=== PATIENT | female | born 1985 | race Caucasian/White ===

== ENCOUNTER 2019-07-11 12:35 | Outpatient (CLI) | payer OTHER, SELFPAY ==
--- NOTE | ~2019-07-11 | US_ITS ---
US breast LT limited DATE: 07/11/2019 13:23 INDICATION: Left axillary mass. Left breast pain, upper outer and lower outer quadrants TECHNIQUE: Real-time and color flow imaging of the axilla and upper outer and lower-outer quadrants o f left breast COMPARISON: No prior left mammogram and ultrasound examination is available here FINDINGS: Breast implant is noted. There is a 1.4 x 3.5 mm parallel circumscribed sonolucency at left axilla 7 cm from the nipple, witho ut internal vascularity or suspicious shadowing. There is a benign appearing 3.9 x 11.3 x 11.0 mm lymph node in the left axilla 10 cm from the nipple. Otherwise no suspicious mass or shadowing is evident. IMPRESSION: BI-RADS Category 2: Benign findings Recommendation: Routine mammographic screening Reviewed, dictated and finalized at Location [facility]. Reviewed, dictated and finalized at location A.
--- NOTE | ~2019-07-11 | US_ITS ---
US axilla LT DATE: 07/11/2019 13:23 INDICATION: Left axillary mass, left upper and lower outer quadrant TECHNIQUE: Real-time and color flow imaging of the left breast upper outer and lower-outer quadrants, left axilla COMPARISON: None FINDINGS: No suspicious mass is detected suspicious shadowing left axilla. Benign-appearing left axil russel lymph node. Small left axillary cyst. IMPRESSION: BI-RADS Category 2: Benign Recommendation: Routine mammographic screening Reviewed, dictated and finalized at Location A. Reviewed, dictated and finalized at location A.
== END 2019-07-11 12:36 | disposition home or self-care (01) ==
DX: N63.32 Unspecified lump in axillary tail of the left breast (principal); N64.4 Mastodynia
CPT/HCPCS: 76642; 76882

== ENCOUNTER 2024-05-09 13:55 | Outpatient (CLI) | payer OTHER, SELFPAY ==
--- NOTE | 2024-05-09 13:30 | ECG_ITS ---
Test Date: 2024-05-09 14:22:58 Measurements Intervals [place] Rate: 80 P: 62 TN: 127 QRS: -1 QRSD: 77 T: 40 QT: 376 QTc: 435 Interpretive Statements SINUS RHYTHM LOW QRS VOLTAGE IN PRECORDIAL LEADS [QRS DEFLECTION < 1.0 mV IN CHEST LEADS] POSSIBLE ANTERIOR MYOCARDIAL INFARCTION [30 ms Q WAVE IN V3/V4, OR R < 0.2 mV IN V4], PROBABLY OLD No previous ECG available for comparison Electronically Signed On 05-10-2024 13:52:19 CDT by Tj Eugene M.D.
[2024-05-09 14:53] LABS: Hematocrit 39.4 % (37.0-47.0); Hemoglobin 13.4 g/dL (12.0-15.0)
--- OUTSIDE RECORDS SUMMARY | 2024-05-09 15:47 | XMS_ITS | Encounter Summary ---
Author Organization [facility] Address [address] [place] [address] Care Team Providers Care Electric Switch Tester Name Role Phone Cresencio Jerez MD Primary Care Provider Encounter Details Date Type Department Care Team (Late st Contact Info) Description 10/17/2023 MyCManageIQt Message Enc [facility] - [place] [address], [address] [place] [id number] Cresencio Jerez MD [address] [place], [place] [id number] Michaela Social History Tobacco Use Types Packs/Day Years Used Date Smoking Tobacco: Never Smokeless Tobacco: Never Alcohol Use Standard Drinks/Week Comments Yes 0 (1 standard drink = 0.6 oz pur e alcohol) AUDIT-C Answer Date Recorded Frequency of Alcohol Consumption Never 11/17/2018 Average Number of Drinks Not on file 019 Frequency of Binge Drinking Not on file 10/30 PHQ-2 Answer Date Recorded Patient Health Questionnaire-2 Score 0 03/24/2023 Comments No Sex and Gender Information Value Date Recorded Sex Assigned at Not on file Legal Sex Female 7:34 PM CDT Gender Identity Not on file Sexual Orientation Not on file documented as of this encounter Plan of Treatment Not on file documented as of this encounter Visit Diagnoses Not on filedocumented in this encounter Additional Health Concerns Assessment Noted Time PHQ-9 Depression Total Score: 12 023 12:02 PM CDT documented as of this encounter Care Teams Electric Switch Tester Relationship Specialty Start Date End Date Cresencio Jerez MD [address] [place] [address] PCP - General FAMILY PRACTICE 11/17/18 documented as of this encounter
--- OUTSIDE RECORDS SUMMARY | 2024-05-09 15:48 | XMS_ITS | Data Portability ---
Author Organization [facility] [employer] , [facility] Address [address] [place] [address] Assessment No assessment recorded. Plan of Treatment Reminders Order Date Submit Date Provider Last Modified By Organization Details Last Modified Time Details Appointments None recorded. Lab test, urine 2024 025 [facility], [address] [place], [address], 5 14:52:33 HPV E6+E7 mRNA, qualitative PCR, cervix 2024 025 [facility] [place] [facility], [address] [place] [address], [address], 5 14:18:36 pap, LB 2024 025 [facility], [address] [place], [address], 5 17:57:02 Referral None recorded. Procedures None recorded. Surgeries None recorded. Imaging MAMMO, screening, digital, bilateral 2024 025 [facility], [address] [facility] [address], [address], [place], [address], 5 12:44:04 US, transvagina l 2024 025 [facility] Not available 5 12:39:27 Medication Orders Mirena 21 mcg/24 hr (up to 8 years) 52 mg intrauterin e device 2024 025 [facility], [address] [place], [id number], 14:52:33 doxycycline hyclate 100 mg capsule 2024 025 [facility], [address], [place], [id number], 16:26:15 estradiol 1 mg tablet 2024 025 [facility], [address], [place], [id number], 16:26:16 Patient TargetsNo targets recorded. Patient Instructions Encounter Date Encounter Id Patient Instructions Last Modified By Organization Details Last Modified Time 04/03/2024 [id number] intrauterine device (IUD) insertion: care instructions [email or web address] Not available 04/03/2024 14:52:33 Reason for Referral None Reported. Results Created Date Observation Date Name Description Value Unit Range Abnormal Flag Note LastModifiedBy Organization Detail LastModifiedTime 04/03/1904/04/2024 HPV HIGH RISK HPV high risk Negati ve negati ve normal The HPV High Risk assay is inten ded for use as co-te sting with cytol ogy and not as a subst itute for regul ar cervi letty cytol ogy scree matt. This assay is not inten ded for use as a scree matt devic e for women under age 30 with leonel l cervi letty cytol ogy. Not Available [address], [address], 04/04/2024 14:18:36 04/03/1904/06/2024 THINP REP TIS PAP clinical information: normal None given Not Available [facility] [address] [place], [address], 04/06/2024 17:57:02 04/03/19 25 04/06/2024 THINP REP TIS PAP LMP: normal NONE GIVEN Not Available [facility] [address] [place], [address], 04/06/2024 17:57:02 04/03/19 25 04/06/2024 THINP REP TIS PAP prev. Pap: normal NONE GIVEN Not Available [address], [address], 04/06/2024 17:57:02 04/03/19 25 04/06/2024 THINP REP TIS PAP prev. BX: normal NONE GIVEN Not Available [address], [address], 04/06/2024 17:57:02 04/03/19 25 04/06/2024 THINP REP TIS PAP source: normal Cervi x Not Available [address], [address], 04/06/2024 17:57:02 04/03/19 25 04/06/2024 THINP REP TIS PAP statement of adequacy: normal Satis facto ry for evalu ation . Endoc ervic al/tr ansfo rmati on zone compo nent prese nt. Age and/o r menst rual statu s not provi ded Not Available [address], [address], 04/06/2024 17:57:02 04/03/19 25 04/06/2024 THINP REP TIS PAP interpretati on/result: normal Cytol ogy Resul ts: Negat millie for intra epith elial lesio n or nhi kelley . Not Available [address], [address], 04/06/2024 17:57:02 04/03/1904/06/2024 THINP REP TIS PAP comment: normal This Pap test has been evalu ated with compu ter carlito gons[employer] ology . Not Available [address], [address], 04/06/2024 17:57:02 04/03/19 25 04/06/2024 THINP REP TIS PAP cytotechnolo gist: normal MEF, CT( CP) CT scree matt locat ion: [place] [address] [place] [address] Not Available [facility] [place] [address] [place], [address], 04/06/2024 17:57:02 04/03/19 25 04/06/2024 THINP REP TIS PAP comment EXPLA NATOR Y NOTE: The Pap is a scree matt test for cervi letty cance r. It is not a diagn ostic test and is subje ct to false negat millie and false posit millie resul ts. It is most relia ble when a satis facto ry sampl e, regul sanjuana obtai marga, is submi tted with relev ant clini letty findi ngs and histo ry, and when the Pap resul t is evalu ated along with histo lv and curre nt clini letty infor matio n. Not Available [facility] [place] [address] [address], [place], [address], 04/06/2024 17:57:02 04/03/19 25 04/03/2024 pregn sonia test, urine HCG negati ve Not Available [address], [address], 04/03/2024 13:36:43 04/03/19 25 04/03/2024 US, trans vagin al No observ ation record ed. [email or web address] [address], [place], [address], 04/17/2024 12:39:27 04/11/19 25 04/03/2024 MAMMO , scree matt, digit al, bilat eral No observ ation record ed. [email or web address] [facility] [address] [place], [address], 04/15/2024 20:14:04 04/19/19 25 04/03/2024 MAMMO , kennae matt, digit al, bilat eral No observ ation record ed. [email or web address] [address], [address], 04/19/2024 15:15:09 Result Notes Documentation Provider Name and Address Organization Details Recorded Time Mammo, Screening, Digital, Bilateral : Mammogram Mammogram Right: normal Left: normal Marie Longo, ULISS[address] [place], [address], [facility] 04/19/2024 15:15:09 Procedures Surgical History Date Name Laterality Status Provider Name and Address Organization Details Recorded Time 04/03/19 25 [facility] 04/03/2024 14:52:13 04/03/19 25 Most Recent Mammogram completed Jorge A Parks [place] [facility] [place] [facility] 04/16/2024 17:16:08 augmentation of bilateral breasts [facility] 04/03/2024 14:20:12 Imaging Results Imaging Date Name Status LastModified by Organization Details LastModified Time 04/03/2024 US, transvaginal completed [email or web address] Korin [address], [place], [address], 04/17/2024 12:39:27 04/03/2024 MAMMO, screening, digital, bilateral completed [email or web address] [address], [address], 04/15/2024 20:14:04 04/03/2024 MAMMO, screening, digital, bilateral completed [email or web address] [address], [address], 04/19/2024 15:15:09 Procedure Notes None recorded. Medical Equipment None Reported. Allergies No known drug allergies Medications Name Sig Start Date Stop Date Status Note LastModified by Organization Details LastModified Time Mirena 21 mcg/24 hr (up to 8 years) 52 mg intrauterin e device Take 1 device by intrauter ine route. 2024 active Not Available Not Available Not Avai lable doxycycline hyclate 100 mg capsule Take 1 capsule twice a day by oral route. 2024 active Not Available Not Available Not Avai lable valacyclovi r 1 gram tablet TAKE 1 TABLET BY MOUTH EVERY 12 HOURS FOR 3 DAYS NEEDED active Not Available Not Available No t Available Zithromax Z-Hitesh 250 mg tablet TAKE 2 TABLETS (500 MG) BY ORAL ROUTE ONCE DAILY FOR 1 DAY THEN 1 TABLET (250 MG) BY ORAL ROUTE ONCE DAILY FOR 4 DAYS 2023 active Not Available Not Available Not Avai lable Diflucan 150 mg tablet Take 1 tablet every day by oral route as directed for 2 days. 04/03 completed Not Available Not Available Not Available metronidazo le 500 mg tablet TAKE 1 TABLET BY MOUTH EVERY 12 HOURS 04/03 completed Not Available Not Available Not Available ciprofloxac in 500 mg tablet TAKE 1 TABLET BY MOUTH EVERY 12 HOURS 04/03 completed Not Available Not Available Not Available amoxicillin 500 mg tablet Take 1 tablet every 8 hours by oral route for 10 days. 04/03 completed Not Available Not Available Not Available ondansetron 8 mg disintegrat ing tablet DISSOLVE 1 TABLET ON THE TONGUE TWICE DAILY NEEDED active Not Available Not Available No t Available meloxicam 7.5 mg tablet TAKE 1 TABLET BY MOUTH EVERY DAY NEEDED active Not Available Not Available No t Available estradiol 1 mg tablet Take 1 tablet twice a day by oral route as directed for 5 days, for bleeding more than 7 days. 2024 active Not Available Not Available Not Avai lable methylpredn isolone 4 mg tablets in a dose pack FOLLOW PACKAGE DIRECTION S active Not Available Not Available No t Available albuterol sulfate HFA 90 mcg/actuati on aerosol inhaler INHALE 1 PUFF BY MOUTH EVERY 4 HOURS NEEDED FOR WHEEZING active Not Available Not Available No t Available ondansetron 4 mg disintegrat ing tablet DISSOLVE 2 TABLETS ON THE TONGUE EVERY 6 HOURS NEEDED active Not Available Not Available No t Available escitalopra m 10 mg tablet TAKE 1 TABLET BY MOUTH EVERY DAY active Not Available Not Available No t Available cefixime 400 mg capsule Take 2 capsules every day by oral route for 1 day. 2022 active Not Available Not Available Not Avai lable Vitals Date Recorded Body height Body mass index (BMI) Body weight Systolic blood pressure Diastolic blood pressure Provider Name and Address Organization Details Last Updated DateTime 04/03/2024 162.56 cm 23.7 kg/m2 61223.75 g 138 mm[Hg] 78 mm[Hg] Nellie Barreto [facility] 14:19:22 Social History None recorded. Functional Status None recorded. Mental Status None recorded. Family History Nothing Reported. Medical History Condition Response Other Cancer N High Blood Pressure N Colon Cancer N Cytomegalovirus N Hyperthyroidism N Herpes (HSV) N Breast Cancer N Blood Transfusion N MRSA N Lung Cancer N Hypothyroidism N Depression N Incontinence N Panic Attacks N Neurological Disorder N Deep Vein Thrombosis N Anxiety Disorder N Autoimmune disease N Arthritis N Tuberculosis/Positive PPD N Shingles N Polycystic Ovarian Syndrome N Infertility N Cervical Cancer N Chlamydia N Hematuria N Stroke N Varicosities N Crohn's Disease N Seasonal allergies N Alzheimer's/Dementia N COPD/Emphysema N HPV/Genital Warts N Endometriosis N IBS (Irritable Bowel Syndrome) N History of Abnormal Pap N High Cholesterol N Liver Disease N Kidney Infection N Fibromyalgia N Ulcer N Kidney Disease N HIV N Gallbladder disease N Sickle Cell Disease/Trait N Von Willebrand disease N ADD/ADHD N Eating Disorder N Anemia N Diabetes Mellitus (non-insulin dependent ) N Ovarian Problems N Multiple Sclerosis N Gonorrhea N Frequent Urinary Tract infections N Osteopenia N Headaches/migraines N GERD (reflux) N Ovarian Cancer N Diabetes (insulin dependent) N Seizures/Epilepsy N Breast Problems N Fibroids N Heart Attack N Asthma N Lupus N Endometrial Cancer N Rubella N Blood Clotting Disorder N Bipolar Disorder N Diabetes Mellitus (during ) N Ulcerative Colitis N Hepatitis N Heart Disease N Pulmonary Embolism N RPR N Chicken Pox N Osteoporosis N Gynecological History Statement/Question Response Most Recent Mammogram 04/03/2024 Current Control Method IUD Age at Menarche -1 Date of LMP Obstetrics History GPAL:G 4 P 4 0 0 4 Type Value Full Term 4 Living 4 Total 4 Past Encounters Encounter ID Performer Location Encounter Start Date Encounter Closed Date Diagnosis/Indication Diagnosis SNOMED-CT Code Diagnosis ICD10 Code Diagnosis Note [id number] Wilton Us MD [facility] [address] [place] [address] 04/03/2024 14:02:12 04/04/2024 17:26:02 Insertion of intrauterine contraceptive device 31055462 Z30.430 Cancer cer vix screening status 817319510 Z12.2 y.o. here for annual exam. - Pap up to date from , discussed natural course of HPV infection, ASCCP guidelines . Plan to repeat cotesting in - Contracept millie counseling : Discussed options including OCPs, NuvaRing, Nexplanon, hormonal and copper IUDs. Discussed risks, benefits, and side effects of each option, including risk of VTE with hormonal contracept ion and uterine perforatio n with IUD. - Routine labs done with PCP - Mammo last year WNL, discussed option for yearly or q2 yr screening in 40s based on different guideline recommenda tions, pt without family hx, would like to proceed with q2yr screening, repeat next year - Depression screen NEG - BMI counseling , diet and exercise reviewed - RTO for annual or PRN Screening mammography 24 764078 Z12.31 Uses IUD (intrauterine device) contraception 753572085 Z97.5 you may experience some cramping for 48 hours and you may take 800 ibuprofenj every 6 hours as neede for cramping. Start your antibiotic s 2 days after the placement. You may have spotting for many days and this is typically because the endometria l lining is very thin secondary to the progestero ne in the IUD and you may take 1mg estradiol twice per day for 5 days if you have more than 7 days of spotting per month. you may even need to take an estradiol tablet every day or every other day to keep the lining thick enough to cover up the blood vessels in the uterus so you arent spotting Health Concerns Section Related Observation LastModified by Organization Detai ls LastModified Time None Recorded Concern Status LastModified by Organization Details LastModified Time None Recorded Advance Directives Directive None Recorded Payers Encounter Date Sequence Insurance Name Policy Number Policy Mandujano Covered Member ID Mandujano Member ID Guarantor Name 04/03/2024 1 [facility] [id number] Michaela Perez [id number] Michaela Perez Notes Date Note Type Note Provider Name and Address Organization Details Recorded Time 04/03/2024 text/html Patient here for IUD replacement. Last IUD inserted 2018. Due for Pap smear. Due for mammogram. Appointment for mammogram after IUD placement and US. No gyne concerns. Wilton Us MD [facility], [place], [address], [facility] 04/10/2024 18:39:02 OBGyn Episode No OBEpisode recorded.
--- OUTSIDE RECORDS SUMMARY | 2024-05-09 15:48 | XMS_ITS | Clinical Summary ---
Author Organization [facility] [employer] Address [address] [place] [address] Care Team Providers Care Sales Representative Advertising Name Role Phone Unavailable Primary Care Provider Unavailabl e Source Comments [facility],non-owned Affiliates and Associated Physician Practices is amultiple site organization consisting of ambulatory clinics and hospital sitesin [place], [place], [place] and [place]. This disclosure is being madepursuant to the Care Everywhere program and may not contain all information available regarding this patient. Last updated 17.[facility] [employer] Allergies No known active allergies Medications * Be aware that medications may not be up to date on this document. Alwaysverify current medications with the patient. Medication Sig Dispensed Refills Start Date End Date Status Vit-Fe Fumarate-FA ( VITAMIN) 28-0.8 MG tablet Take 1 Tab by mouth once daily. Active ibuprofen (MOTRIN) 600 MG tablet Take 1 Tab by mouth every 6 hours as needed for Pain. 40 Tab 0 04/21/2013 Active oxyCODONE-acetaminophe n (PERCOCET) 5-325 MG tablet Take 1 Tab by mouth every 6 hours as needed for Pain. 30 Tab 0 04/21/2013 Active Active Problems No known active problems Immunizations Name Administration Dates Next Due TDAP (7yrs+) 04/19/2013 Family History Medical History Relation Name Comments Hypertension Father Relation Name Status Comments Father Social History Tobacco Use Types Packs/Day Years Used Date Smoking Tobacco: Never Smokeless Tobacco: Never Tobacco Cessation:Counseling Given: No Alcohol Use Standard Drinks/Week Comments No 0 (1 standard drink = 0.6 oz pur e alcohol) Sex and Gender Information Value Date Recorded Sex Assigned at Not on file Gender Identity Not on file Sexual Orientation Not on file Last Filed Vital Signs Vital Sign Reading Time Taken Comments Blood Pressure 115/53 04/21/2013 8:31 AM [employer] Pulse 81 04/19/2013 12:52 PM [employer] Temperature 36.5 C (97.7 F) 04/21/2013 8:31 AM [employer] Respiratory Rate 16 04/21/2013 8:31 AM [employer] Oxygen Saturation 99% 04/19/2013 2:30 PM [employer] Inhaled Oxygen Concentration - - Weight 74.8 kg (165 lb) 04/19/2013 8:57 AM [employer] Height 165.1 cm (5' 5 ) 04/19/2013 8:57 AM [employer] Body Mass Index 27.46 04/19/2013 8:57 AM [employer] Plan of Treatment Health Maintenance Due Date Last Done Comments LIPID TESTING 1983 MAMMOGRAM 1983 PAP SMEAR 1983 HIV SCREENING 08/13/1998 HEPATITIS C SCREENING 08/09/2001 HEPATITIS B VACCINE (1 of 3 - 19+ 3-dose series) 08/13/2002 DTAP/TDAP/TD VACCINES (2 - T d or Tdap) 04/19/2023 04/19/2013 COVID-19 VACCINE (2023-2 5 season) 2023 INFLUENZA VACCINE (#1) 2023 DEPRESSION SCREENING 02/29/2024 ZOSTER VACCINE (1 of 2) 08/13/2033 HIB VACCINE Aged Out No longer eligi ble based on patient's age to complete this topic HPV VACCINE Aged Out No longer eligi ble based on patient's age to complete this topic MENINGOCOCCAL (Group B) VACC INE SHARED DECISION-MAKING Aged Out No longer eligibl e based on patient's age to complete this topic MENINGOCOCCAL GROUPS A/C/Y/W VACCINE Aged Out No longer eligible b ased on patient's age to complete this topic PNEUMOCOCCAL VACCINE Aged Out No long er eligible based on patient's age to complete this topic Advance Directives * Full Code (Latest Code Status on File) Date Activated Date Inactivated Comments 04/19/2013 9:08 AM 04/21/2013 2:40 PM
--- OUTSIDE RECORDS SUMMARY | 2024-05-09 15:48 | XMS_ITS | Referral Summary ---
Author Organization [facility] Address [address] [place] [address] Care Team Providers Care Washing And Screening Plant Supervisor Name Role Phone Unavailable Primary Care Provider Unavailabl e Source Comments [facility],non-owned Affiliates and Associated Physician Practices is amultiple site organization consisting of ambulatory clinics and hospital sitesin [place], [place], [place] and [place]. This disclosure is being madepursuant to the Care Everywhere program and may not contain all information available regarding this patient. Last updated 17.[facility] Allergies No known active allergies Medications * [...] Administration Dates Next Due TDAP (7yrs+) 04/19/2013 Social History Tobacco Use Types Packs/Day Years [...] Comments Blood Pressure 115/53 04/21/2013 8:31 AM RADIOTELEGRAPHIST Pulse 81 04/19/2013 12:52 PM RADIOTELEGRAPHIST Temperature 36.5 C (97.7 F) 04/21/2013 8:31 AM RADIOTELEGRAPHIST Respiratory Rate 16 04/21/2013 8:31 AM RADIOTELEGRAPHIST Oxygen Saturation 99% 04/19/2013 2:30 PM RADIOTELEGRAPHIST Inhaled Oxygen Concentration - - Weight 74.8 kg (165 lb) 04/19/2013 8:57 AM RADIOTELEGRAPHIST Height 165.1 cm (5' 5 ) 04/19/2013 8:57 AM RADIOTELEGRAPHIST Body Mass Index 27.46 04/19/2013 8:57 AM RADIOTELEGRAPHIST Functional Status Functional Status Response Date of Assess ment Is person deaf or have serious hearing difficult y? No 04/19/2013 Is person blind or have serious difficulty seein g? No 04/19/2013 Does person have serious dif ficulty walking/climbing stairs? No 04/19/2013 Does person have difficulty dressing/bathing? No 04/19/2013 Does person have difficulty doing errands alone? No 04/19/2013 Cognitive Status Response Date of Assessm ent Does person have difficulty concentrating/remembering/making decisions? No 04/19/2013 Plan of Treatment Not on file Advance Directives * Full Code (Latest Code Status on File) Date Activated Date Inactivated Comments 04/19/2013 9:08 AM 04/21/2013 2:40 PM
--- OUTSIDE RECORDS SUMMARY | 2024-05-09 15:48 | XMS_ITS | Referral Summary ---
Author Organization [facility] Address [address] [place] [phone] Phone Care Team Providers Care Imager Name Role Phone Cresencio Jerze MD Primary Care Provider [phone]- [phone] Encounters Date Type Department Care Team Description 03/02/2024 1:28 PM STRING TOP SEALER - 03/02/2024 3:20 PM STRING TOP SEALER Emergency [facility] Emergency Department [address] [place] [id number] Pleuritic chest pain (Primary Dx) Discharge Disposition: Discharge to home or self care from Last 3 Months Allergies No known active allergies Medications ketorolac (TORADOL) 10 mg tablet Take 1 tablet (10 mg total) by mouth every 6 (six) hours as needed for pain 20 tablet 03/02/2024 Active Active Problems No known active problems Social History Tobacco Use Types Packs/Day Years Used Date Smoking Tobacco: Never Tobacco Cessation:Counseling Given: Not Answered Personal Safety Answer Date Recorded Have you ever been in or are you currently in a harmful physical or emotional relationship or is someone making you feel afraid or unsafe? Denies 03/02/2024 Comments No Sex and Gender Information Value Date Recorded Sex Assigned at Not on file Legal Sex Female 9:15 AM CDT Gender Identity Not on file Sexual Orientation Not on file Last Filed Vital Signs Vital Sign Reading Time Taken Comments Blood Pressure 127/90 03/02/2024 2:00 PM STRING TOP SEALER Pulse 68 03/02/2024 2:00 PM STRING TOP SEALER Temperature 37.2 C (99 F) 03/02/2024 11:52 AM STRING TOP SEALER Respiratory Rate 18 03/02/2024 2:00 PM STRING TOP SEALER Oxygen Saturation 100% 03/02/2024 2:00 PM STRING TOP SEALER Inhaled Oxygen Concentration - - Weight 62.4 kg (137 lb 9.1 oz) 03/02/2024 11:52 AM STRING TOP SEALER Height 165.1 cm (5' 5 ) 03/02/2024 11:52 AM STRING TOP SEALER Body Mass Index 22.89 03/02/2024 11:52 AM STRING TOP SEALER Plan of Treatment Not on file Procedures Procedure Name Priority Date/Time Associated Diagnosis Comments CT CHEST PE W CONTRAST ED 2:25 PM STRING TOP SEALER TROPONIN T HIGH-SENSITIVITY 2-HOUR Timed 03/02/2024 1:31 PM STRING TOP SEALER D-DIMER, QUANTITATIVE STAT 03/02/2024 1:31 PM STRING TOP SEALER XR CHEST 1 VIEW ED 03/02/2024 12:35 PM STRING TOP SEALER POCT HCG, URINE Routine 03/02/2024 12:30 PM STRING TOP SEALER EGFR STAT 03/02/2024 11:57 AM STRING TOP SEALER DIFFERENTIAL AUTO STAT 03/02/2024 11: 57 AM STRING TOP SEALER TROPONIN T HIGH-SENSITIVITY SERIES (BASELINE, 2HR, 4HR, 6HR) STAT 03/02/2024 11:57 AM STRING TOP SEALER COMPREHENSIVE METABOLIC PANEL STAT 03/02/2024 11:57 AM STRING TOP SEALER CBC WITH AUTO DIFFERENTIAL STAT 03/02/2024 11:57 AM STRING TOP SEALER ECG 12-LEAD STAT 03/02/2024 11:55 AM STRING TOP SEALER from Last 3 Months Results * CT Chest PE (CTA) W Contrast (03/02/2024 2:25 PM STRING TOP SEALER) Anatomical Region Laterality Modality Body N/A Computed Tomogra phy 03/02/2024 2:35 PM STRING TOP SEALER Narrative 03/02/2024 2:38 PM STRING TOP SEALER EXAM DESCRIPTION: CT CHEST PE (CTA) W CONTRAST REASON FOR STUDY: Chest pain, PE suspected, low/intermediate prob, positive D-dimer CP since Tuesday. States has had this in past and came here, diagnosed with pulled muscle. States occasionally SOB with exertion. Denies cardiac hx. TECHNIQUE: CT angiogram of the chest performed with intravenous contrast using helical scanning technique with dynamic intravenous contrast injection. Reconstructed coronal and sagittal MPR images reviewed. All images stored on PACS. 3D MIP images rendered on scanning unit and reviewed at time of interpretation. Automated exposure control was used as a dose optimization technique for this examination. CONTRAST TYPE/DOSE: 100mL of IOVERSOL 350 MG IODINE/ML INTRAVENOUS SYRINGE injected via intravenous COMPARISON: None. FINDINGS: VASCULATURE: No filling defects seen within the pulmonary arterial system. The thoracic aorta is nonaneurysmal. Ascending thoracic aorta 3.4 cm, descending thoracic aorta 2.2 cm. Main pulmonary artery 2.7 cm. LUNGS: Lung bases are clear. No suspicious nodule or mass. PLEURA: No pleural effusion or pneumothorax. MEDIASTINUM/BEKAH: No mediastinal or hilar mass. HEART: Heart size is normal with no pericardial effusion. AXILLA: No axillary lymphadenopathy. CHEST WALL: No chest wall mass or subcutaneous emphysema. Bilateral breast prosthesis. HARDWARE/LINES/TUBES: None. UPPER ABDOMEN: In the included upper abdomen, no significant abnormalities are seen. MUSCULOSKELETAL: Bone windows demonstrate no acute or aggressive osseous abnormality. OTHER: No significant abnormality. IMPRESSION: No evidence of an acute pulmonary embolism. No evidence of an acute cardiopulmonary abnormality. THIS IS AN ELECTRONICALLY VERIFIED FINAL REPORT 03/02/2024 2:38 PM - Electronically signed by Blas Felton M.D. CH: YESSENIA Report ID: [id number] Reading Location: [id number] Procedure Note Blas Felton Jr., MD - 03/02/2024 EXAM DESCRIPTION: CT CHEST PE (CTA) W CONTRAST REASON FOR STUDY: Chest pain, PE suspected, low/intermediate prob,positive D-dimer CP since Tuesday. States has had this in past and came here, diagnosed with pulled muscle. States occasionally SOB with exertion. Denies cardiac hx. TECHNIQUE: CT angiogram of the chest performed with intravenous contrastusing helical scanning technique with dynamic intravenous contrast injection. Reconstructed coronal and sagittal MPR images reviewed. All images storedon PACS. 3D MIP images rendered on scanning unit and reviewed at time of interpretation. Automated exposure control was used as a doseoptimization technique for this examination. CONTRAST TYPE/DOSE: 100mL of IOVERSOL 350 MG IODINE/ML INTRAVENOUSSYRINGE injected via intravenous COMPARISON: None. FINDINGS: VASCULATURE: No filling defects seen within the pulmonaryarterial system. The thoracic aorta is nonaneurysmal. Ascending thoracic aorta3.4 cm, descending thoracic aorta 2.2 cm. Main pulmonary artery 2.7 cm. LUNGS: Lung bases are clear. No suspicious nodule or mass. PLEURA: No pleural effusion or pneumothorax. MEDIASTINUM/BEKAH: No mediastinal or hilar mass. HEART: Heart size is normal with no pericardial effusion. AXILLA: No axillary lymphadenopathy. CHEST WALL: No chest wall mass or subcutaneous emphysema. Bilateralbreast prosthesis. HARDWARE/LINES/TUBES: None. UPPER ABDOMEN: In the included upper abdomen, no significantabnormalities are seen. MUSCULOSKELETAL: Bone windows demonstrate no acute or aggressive osseous abnormality. OTHER: No significant abnormality. IMPRESSION: No evidence of an acute pulmonary embolism. No evidence of an acute cardiopulmonary abnormality. THIS IS AN ELECTRONICALLY VERIFIED FINAL REPORT 03/02/2024 2:38 PM - Electronically signed by Blas Felton M.D. CH: Report ID: [id number] Reading Location: [place] [address] PROCEDURES Final Result * Troponin T high-sensitivity 2-hour (03/02/2024 1:31 PM STRING TOP SEALER) Trop T hs <6 <=14 ng/L Comment: Interpretive Data For further hscTnT resources including the diagnostic algorithm and an aid in interpretation, copy and paste this link: https://nrl.testcatalog.org/show/hsTrop Current Interpretive Data last revised 2020. Testing performed by: [address] [address] Trop T hs delta 0 ng/L [place] Comment:Testing performed by : [address] [address] Trop T hs interp Insignificant [place] MUELLER Comment:Testing performed by : [address] [address] Blood 03/02/2024 1:31 PM STRING TOP SEALER 03/02/2024 1:34 PM STRING TOP SEALER us Kam Das MD LAB BLOOD ORDERABLES F inal Result Performing Organization Address [facility] Co de Phone Number [address] [employer] [place], [place] [id number] * (ABNORMAL) D-dimer, quantitative (03/02/2024 1:31 PM STRING TOP SEALER) D-Dimer 530(H) <=499 ng/mL FEU Comment: Interpretive data FDA approved the D-dimer, in conjunction with a low or moderate pretest probability score, to exclude venous thromboembolic events (VTE) (PE and DVT) in outpatients when the D-dimer result is < 500 ng/ml FEU. Evidence supports using an age-adjusted D-dimer cut-off for outpatients older than 50 (age x 10) to improve specificity without sacrificing sensitivity. Example: age 68, VTE cut-off 680 ng/ml FEU. References; Schouten HT et al. Brit Med J. 2013;346:f2492. Freya et al. Annals Int Med. 2015;163:701-11. Current interpretive data was last revised on 2019. Testing performed by: [address] [address] Blood 03/02/2024 1:31 PM STRING TOP SEALER 03/02/2024 1:34 PM STRING TOP SEALER us Cindy LOPEZ LAB BLOOD ORDERABLES Final Resu lt Performing Organization Address City/[facility]/ZIP Co de Phone Number [facility] [address] [place] [address] [place] [address] * XR Chest 1 Vw Portable (if patient condition/safety warrant portable) (03/02/2024 12:35 PM STRING TOP SEALER) Anatomical Region Laterality Modality Body, Chest N/A Computed Radiogr aphy 03/02/2024 12:5 2 PM STRING TOP SEALER Narrative 03/02/2024 12:53 PM STRING TOP SEALER EXAM DESCRIPTION: XR CHEST 1 VIEW REASON FOR STUDY: chest pain Pt states chest pain 02/26/24 TECHNIQUE: Single radiographic view(s) of the chest. COMPARISON: Prior exam 09/29/2023 FINDINGS: LUNGS: Pulmonary vascularity appears normal. No infiltrate or effusion. HEART/MEDIASTINUM: Cardiac silhouette normal in size. Mediastinal and hilar contours appear normal. LINES/TUBES: None. BONES: No acute osseous abnormality. IMPRESSION: No acute cardiopulmonary abnormality. THIS IS AN ELECTRONICALLY VERIFIED FINAL REPORT 03/02/2024 12:53 PM - Electronically signed by Wilton NOLASCO Report ID: [id number] Reading Location: [id number] Procedure Note Wilton Eugene MD - 03/02/2024 EXAM DESCRIPTION: XR CHEST 1 VIEW REASON FOR STUDY: chest pain Pt states chest pain 02/26/24 TECHNIQUE: Single radiographic view(s) of the chest. COMPARISON: Prior exam 09/29/2023 FINDINGS: LUNGS: Pulmonary vascularity appears normal. No infiltrate or effusion. HEART/MEDIASTINUM: Cardiac silhouette normal in size. Mediastinal andhilar contours appear normal. LINES/TUBES: None. BONES: No acute osseous abnormality. IMPRESSION: No acute cardiopulmonary abnormality. THIS IS AN ELECTRONICALLY VERIFIED FINAL REPORT 03/02/2024 12:53 PM - Electronically signed by Wilton NOLASCO: GAURAV Report ID: [id number] Reading Location: [id number] us Kam Das MD IMG XR PROCEDURES Nova l Result * POCT hCG, urine (03/02/2024 12:30 PM STRING TOP SEALER) [facility] HCG, ur, POC Negative Negative Lot Number [id number] QC Backgroud Clear Acceptable QC Control Line Acceptable Urine 03/02/2024 12:3 0 PM STRING TOP SEALER Kam Das MD POINT OF CARE TEST ORD ERABLES Final Result * Troponin T high-sensitivity series (baseline, 2hr, 4hr, 6hr) (03/02/2024 11:57 AM STRING TOP SEALER) [facility] Trop T hs <6 <=14 ng/L Comment: Interpretive Data For further hscTnT resources including the diagnostic algorithm and an aid in interpretation, copy and paste this link: https://nrl.testcatalog.org/show/hsTrop Current Interpretive Data last revised 2020. Testing performed by: [facility], [address] [place] [address]., [address] Blood 03/02/2024 11:5 7 AM STRING TOP SEALER 03/02/2024 12:12 PM STRING TOP SEALER Kam Das MD LAB BLOOD ORDERABLES F inal Result [facility] [address] [facility] [place] [address] * eGFR (03/02/2024 11:57 AM STRING TOP SEALER) [facility] eGFR >90 >=60 mL/min/1. 73 m2 Comment: Interpretive Data Reference Interval Normal >/= 90 mL/min/1.73m2 Mildly decreased* 60 - 89 mL/min/1.73m2 Mildly to moderately decreased 45 - 59 mL/min/1.73m2 Moderately to severely decreased 30 - 44 mL/min/1.73m2 Severely decreased 15 - 29 mL/min/1.73m2 Kidney Failure < 15 mL/min/1.73m2 *Relative to young adult level Estimated glomerular filtration rate is determined by the 2020 CKD-EPI equation recommended by the National Kidney Foundation (A Unifying Approach to GFR Estimation: Recommendations of the NKF-ASK Task Force on Reassessing the Inclusion of Race in Diagnosing Kidney Disease, JASN 2020). The CKD-EPI equation should not be used for patients with unstable renal function and has not been validated in children and those over 70. Current interpretive data was last reviewed 2020. Testing performed by: [address] [address] Blood 03/02/2024 11:5 7 AM STRING TOP SEALER 03/02/2024 12:12 PM STRING TOP SEALER us Kam Das MD LAB BLOOD ORDERABLES F inal Result [facility] [address] [facility] [place] [address] * Differential, auto (03/02/2024 11:57 AM STRING TOP SEALER) Neutrophil abs 3.0 1.5 - 6.5 K/cumm Comment:Testing performed by : [address] [address] Imm gran abs 0.0 0.0 - 0.1 K/cumm GIOVANY Comment:Testing performed by : [address] [address] Lymphocyte abs 1.6 0.8 - 3.3 K/cumm GI[place] Comment:Testing performed by : [address] [address] Monocyte abs 0.4 0.2 - 0.8 K/cumm GIOV[place] Comment:Testing performed by : [address] [address] Eosinophil abs 0.2 0.0 - 0.5 K/cumm GIOV[place] Comment:Testing performed by : [address] [address] Basophil abs 0.0 0.0 - 0.1 K/cumm GI[place] Comment:Testing performed by : [address] [place] [address] Neutrophil pct 57.2 % [facility] Comment: Interpretive Data Percent cell count reference ranges are not reported, since discordance with absolute values may lead to misinterpretation of CBC data. Current Interpretive Data was last revised on 2017. Testing performed by: [address] [address] Imm gran pct 0.2 % [facility] Comment: Interpretive Data Percent cell count reference ranges are not reported, since discordance with absolute values may lead to misinterpretation of CBC data. Current Interpretive Data was last revised on 2017. Testing performed by: [address] [address] Lymphocyte pct 30.2 % [facility] Comment: Interpretive Data Percent cell count reference ranges are not reported, since discordance with absolute values may lead to misinterpretation of CBC data. Current Interpretive Data was last revised on 2017. Testing performed by: [address] [address] Monocyte pct 8.4 % [facility] Comment: Interpretive Data Percent cell count reference ranges are not reported, since discordance with absolute values may lead to misinterpretation of CBC data. Current Interpretive Data was last revised on 2017. Testing performed by: [address] [address] Eosinophil pct 3.4 % CERNER Comment: Interpretive Data Percent cell count reference ranges are not reported, since discordance with absolute values may lead to misinterpretation of CBC data. Current Interpretive Data was last revised on 2017. Testing performed by: [address] [address] Basophil pct 0.6 % [facility] Comment: Interpretive Data Percent cell count reference ranges are not reported, since discordance with absolute values may lead to misinterpretation of CBC data. Current Interpretive Data was last revised on 2017. Testing performed by: [address] [address] Blood 03/02/2024 11:5 7 AM STRING TOP SEALER 03/02/2024 12:12 PM STRING TOP SEALER us Kam Das MD LAB BLOOD ORDERABLES F inal Result [facility] [address] [facility] Department [place] [address] * (ABNORMAL) CBC with auto differential (03/02/2024 11:57 AM STRING TOP SEALER) [facility] Signature WBC 5.3 3.8 - 9.9 K/cumm Comment:Testing performed by : [address] [address] Hgb 14.2 11.9 - 15.5 g/dL GIOVANY Comment:Testing performed by : [address] [address] Hct 41.9 35.6 - 45.5 % GI[facility] Comment:Testing performed by : [address] [address] Plt 261 150 - 400 K/cumm GIOVANY Comment:Testing performed by : [address] [address] MPV 9.3 9.1 - 12.3 fL [place] Comment:Testing performed by : [address] [address] RBC 4.13 3.90 - 5.20 M/cumm GIOVANY Comment:Testing performed by : [address] [address] MCV 101.5(H) 81.3 - 96.4 fL [place] Comment:Testing performed by : [address] [address] MCH 34.4(H) 27.1 - 33.3 pg GI[facility] Comment:Testing performed by : [address] [address] MCHC 33.9 32.3 - 35.7 g/dL [place] Comment:Testing performed by : [address] [address] RDW CV 12.4 11.1 - 14.9 % GI[facility] Comment:Testing performed by : [address] [address] RDW SD 46.6 35.7 - 48.1 fL [place] Comment:Testing performed by : [address] [address] NRBC abs 0.00 0.00 - 0.01 K/cumm GI[place] MUELLER Comment:Testing performed by : [address] [address] Blood Venous blood specimen / Unknown 03/02/2024 11:57 AM STRING TOP SEALER 03/02/2024 12:12 PM STRING TOP SEALER us Kam Das MD LAB BLOOD ORDERABLES F inal Result [facility] Department [place] [address] * Comprehensive metabolic panel (03/02/2024 11:57 AM STRING TOP SEALER) Sodium 141 135 - 145 mmol/L Comment:Testing performed by : [address] [address] Potassium, pl 3.9 3.3 - 4.9 mmol/L GIOV[place] Comment:Testing performed by : [address] [address] Chloride 105 97 - 110 mmol/L GIOVANY Comment:Testing performed by : [address] [address] CO2 26 22 - 32 mmol/L GIOVANY Comment:Testing performed by : [address] [address] Anion gap 10 2 - 15 mmol/L GIOVANY Comment:Testing performed by : [address] [address] BUN 8 6 - 25 mg/dL [facility] Comment:Testing performed by : [address] [address] Creatinine 0.60 0.60 - 1.10 mg/dL [place] Comment:Testing performed by : [address] [address] Glucose 79 70 - 199 mg/dL [place] MUELLER Comment: Interpretive Data Fasting glucose >/= 126 mg/dl is diagnostic for diabetes. Fasting is defined as no caloric intake for at least 8 hours. Fasting glucose between 100 mg/dl to 125 mg/dl is diagnostic of prediabetes. In a patient with classic symptoms of hyperglycemia or hyperglycemic crisis, a random glucose >/= 200 mg/dl is diagnostic for diabetes. In the absence of unequivocal hyperglycemia, results should be confirmed by repeat testing. The classification and Diagnosis of Diabetes Diabetes Care 2021; 46: S19-S40. Current interpretive data was last revised 2022. Testing performed by: [address] [address] Calcium 9.6 8.5 - 10.3 mg/dL [place] Comment:Testing performed by : [address] [address] Bilirubin, total 0.3 0.1 - 1.2 mg/dL [place] Comment:Testing performed by : [address] [address] Protein, pl 7.8 6.5 - 8.5 g/dL [place] Comment:Testing performed by : [address] [address] Albumin 4.8 3.5 - 5.0 g/dL [place] Comment:Testing performed by : [address] [address] Alk phos 68 40 - 130 Units/L [place] Comment:Testing performed by : [address] [address] ALT 32 7 - 45 Units/L [place] Comment:Testing performed by : [address] [address] AST 35 10 - 45 Units/L [place] Comment:Testing performed by : [address] [address] Blood 03/02/2024 11:5 7 AM STRING TOP SEALER 03/02/2024 12:12 PM STRING TOP SEALER us Kam Das MD LAB BLOOD ORDERABLES F inal Result [facility] [address] [facility] [place] [address] * ECG 12 lead (03/02/2024 11:55 AM STRING TOP SEALER) Ventricular Rate EKG/Min 74 BPM [facility] Atrial Rate 74 BPM [facility] OR-Interval (MSEC) 120 ms [facility] QRS-Interval (MSEC) 80 ms [facility] QT-Interval (MSEC) 386 ms [facility] QTc 428 ms [facility] P [place] 74 degrees [facility] R [place] 6 degrees [facility] T [place] 54 degrees [facility] Diagnosis Normal sinus rhythm Possible Left atrial enlargement Possible Anterior infarct (cited on or before 07-JUN-2016) Abnormal ECG When compared with ECG of 29-SEP-2023 10:43, QRS axis Shifted right Confirmed by CHATO COLVIN M.D. ([id number]) on 03/02/2024 11:41:28 PM [facility] 03/02/2024 11:5 5 AM STRING TOP SEALER 03/02/2024 11:41 PM STRING TOP SEALER us Kam Das MD ECG ORDERABLES Final Result Performing Organization Address City/[facility] Co de Phone Number [facility] from Last 3 Months Insurance [employer] [facility] Address: [facility] [id number] [place] [address] Care Teams Imager Relationship Specialty Start Date End Date Cresencio Jerez MD [address] [facility] [address] [place] [address] PCP - General Family Medicine 03/02/24
--- OUTSIDE RECORDS SUMMARY | 2024-05-09 15:48 | XMS_ITS | Patient Health Summary ---
Author Organization [facility] Address [address] [place] [address] Care Team Providers Care Senior Vice President & General Counsel Name Role Phone Unavailable Primary Care Provider Unavailabl e Note from [facility],non-owned Affiliates and Associated Physician Practices is amultiple site organization consisting of ambulatory clinics and hospital sitesin [place], [place], [place] and [place]. This disclosure is being madepursuant to the Care Everywhere program and may not contain all information available regarding this patient. Last updated 17.[facility] Allergies No known active allergies Medications * Be aware that medications may not be up to date on this document. Alwaysverify current medications with the patient. * Vit-Fe Fumarate-FA ( VITAMIN) 28-0.8 MG tablet Take 1 Tab by mouth once daily. * ibuprofen (MOTRIN) 600 MG tablet(Started 04/21/2013) Take 1 Tab by mouth every 6 hours as needed for Pain. * oxyCODONE-acetaminophen (PERCOCET) 5-325 MG tablet(Started 04/21/2013) Take 1 Tab by mouth every 6 hours as needed for Pain. Active Problems No known active problems Immunizations * TDAP (7yrs+)(Given 04/19/2013) Social History Tobacco Use Types Packs/Day Years [...] Comments Blood Pressure 115/53 04/21/2013 8:31 AM SOFTWARE CONSULTANT Pulse 81 04/19/2013 12:52 PM SOFTWARE CONSULTANT Temperature 36.5 C (97.7 F) 04/21/2013 8:31 AM SOFTWARE CONSULTANT Respiratory Rate 16 04/21/2013 8:31 AM SOFTWARE CONSULTANT Oxygen Saturation 99% 04/19/2013 2:30 PM SOFTWARE CONSULTANT Inhaled Oxygen Concentration - - Weight 74.8 kg (165 lb) 04/19/2013 8:57 AM SOFTWARE CONSULTANT Height 165.1 cm (5' 5 ) 04/19/2013 8:57 AM SOFTWARE CONSULTANT Body Mass Index 27.46 04/19/2013 8:57 AM SOFTWARE CONSULTANT Procedures * LAB RESULTS ORDER(Performed 04/23/2013) * CBC W AUTO DIFFERENTIAL(Performed 04/20/2013) * BLOOD TYPE VERIFICATION(Performed 04/19/2013) * NEURAXIAL BLOCK(Performed 04/19/2013) * URINALYSIS REFLEX TO MICROSCOPIC NO CULTURE(Performed 04/19/2013) * URINE MICROSCOPIC ONLY(Performed 04/19/2013) * TYPE + SCREEN PANEL(Performed 04/19/2013) * CBC W AUTO DIFFERENTIAL(Performed 04/19/2013) Results * LAB RESULTS ORDER (04/23/2013 5:43 PM SOFTWARE CONSULTANT) Narrative 04/23/2013 5:43 PM SOFTWARE CONSULTANT Ordered by an unspecified provider. Transcriptions Document, Scanned - 04/23/2013 5:43 PM CST Scanned Document LAB - THERAPEUTIC DR RADER MONITORING ORDERABLES * (ABNORMAL) CBC W AUTO DIFFERENTIAL (04/20/2013 7:34 AM SOFTWARE CONSULTANT) Only the most recent of2 resultswithin the time period is included. WBC 12.4(H) 4.4 - 10.7 x10^9/L 04/20/2013 7:57 AM SOFTWARE CONSULTANT [facility] RBC 3.31(L) 3.80 - 5.20 x10^12/L 04/20/2013 7:57 AM SOFTWARE CONSULTANT [facility] Hemoglobin 11.1(L) 12.0 - 15.6 gm/dL 04/20/2013 7:57 AM SOFTWARE CONSULTANT [facility] Hematocrit 32.7(L) 35.9 - 45.5 % 04/20/2013 7:[address] [facility] MCV 98.8(H) 80.7 - 98.3 fl 04/20/2013 7:[address] [facility] MCH 33.5 26.7 - 34.0 pg 04/20/2013 7:[address] [facility] MCHC 33.9 30.8 - 35.9 gm/dL 04/20/2013 7:[address] [facility] Platelet Count 172 153 - 416 x10^9/L 04/20/2013 7:[address] [facility] RDW-CV 13.5 12.1 - 14.9 % 04/20/2013 7:[address] [facility] MPV 10.6 9.4 - 12.9 fl 04/20/2013 7:[address] [facility] Neutrophils % 74.2(H) 44.0 - 73.0 % 04/20/2013 7:[address] [facility] Lymphocytes % 16.6(L) 20.0 - 43.0 % 04/20/2013 7:[address] [facility] Monocytes % 8.0 5.0 - 13.0 % 04/20/2013 7:[address] [facility] Eosinophils % 1.0 0.0 - 6.0 % 04/20/2013 7:[address] [facility] Basophils % 0.2 0.0 - 2.0 % 04/20/2013 7:[address] [facility] Neutrophil Absolute 9.23(H) 2.01 - 7.14 x10^9/L 04/20/2013 7:[address] [facility] Lymphocytes Absolute 2.06 1.07 - 3.94 x10^9/L 04/20/2013 7:[address] [facility] Monocytes Absolute 0.99 0.26 - 1.07 x10^9/L 04/20/2013 7:[address] [facility] Eosinophils Absolute 0.13 0 - 0.47 x10^9/L 04/20/2013 7:[address] [facility] Basophils Absolute 0.03 0 - 0.08 x10^9/L 04/20/2013 7:[address] [facility] Blood BLOOD SPECIMEN / Unknown Lab Venipuncture / Unknown 04/20/2013 7:34 AM SOFTWARE CONSULTANT 04/20/2013 7:45 AM SOFTWARE CONSULTANT Vince Garcia MD LAB - HEMATOLOGY OR DERABLES [facility] [address] [address] * BLOOD TYPE VERIFICATION (04/19/2013 3:05 PM SOFTWARE CONSULTANT) ABO O 04/19/2013 5:41 PM SOFTWARE CONSULTANT [facility] Rh Type Positive 04/19/2013 5:41 PM SOFTWARE CONSULTANT [facility] Blood Bank BLOOD SPECIMEN / Unknown 04/19/2013 3:05 PM SOFTWARE CONSULTANT 04/19/2013 3:11 PM SOFTWARE CONSULTANT Vince Garcia MD LAB - BLOOD BANK OR DERABLES Performing Organization Address [facility] Co de Phone Number [facility] * NEURAXIAL BLOCK (04/19/2013 1:15 PM SOFTWARE CONSULTANT) Narrative Cosmo Danielle APRN-LOADING UNIT OPERATOR POWDER CHARGING - 04/19/2013 1:15 PM SOFTWARE CONSULTANT MARIAH Brush 04/19/2013 1:15 PM NEURAXIAL BLOCK Patient Location: OB Pre Procedure Indication: at patient's request, at surgeon's request and labor analgesia Anticoagulation /Antithrombosis Status Confirmed: Yes Preanesthetic Checklist: patient identified, IV checked, site marked, risks and benefits discussed, surgical consent verified, monitors and equipment checked, pre-op evaluation done, timeout performed, informed consent obtained and questions answered / anesthesia plan accepted Monitors: BP and Pulse Ox Patient Condition: awake Patient Position: sitting Procedure Block Performed: epidural Prep: Betadine Sterile Field: mask, cap/hat, sterile field established and sterile gloves Approach: midline Skin Numbed with: lidocaine 1% Epidural Needle Type: Tuohy Needle Gauge: 20 Placement Site: L4-L5 Number of Attempts: 2 (1st attempt @ L2-3 space, positive blood return. Repositioned @ L3-4, no blood return, negative test dose. ) Loss of ResistanceTechnique: saline Loss of Resistance: 6 cm Catheter Threaded to: 6 cm Catheter Length at Skin: 12 cm CSF Aspirated from Catheter: negative Blood Aspirated from Catheter: negative Test Dose: lidocaine 1.5% with 1 200 k epinephrine Test Dose Response: negative Local Anesthetic: bupivacaine 0.25% 6 ml Epidural additive: fentanyl 100 mcg Events CSF return negative injection not painful no paresthesia no other event Degree of Difficulty: none Position Post Procedure: left uterine displacement Vital signs monitored and stable throughout. See Anesthesia Intraop record for details. Block Performed by: Aspen Danielle CRNA Procedure Note Cosmo Danielle APRN-CRNA - 04/19/2013 1:12 PM CST NEURAXIAL BLOCK Patient Location: OB Pre Procedure Indication: at patient's request, at surgeon's request and laboranalgesia Anticoagulation /Antithrombosis Status Confirmed: Yes Preanesthetic Checklist: patient identified, IV checked, site marked,risks and benefits discussed, surgical consent verified, monitors andequipment checked, pre-op evaluation done, timeout performed, informedconsent obtained and questions answered / anesthesia plan accepted Monitors: BP and Pulse Ox Patient Condition: awake Patient Position: sitting Procedure Block Performed: epidural Prep: Betadine Sterile Field: mask, cap/hat, sterile field established and sterilegloves Approach: midline Skin Numbed with: lidocaine 1% Epidural Needle Type: Tuohy Needle Gauge: 20 Placement Site: L4-L5 Number of Attempts: 2 (1st attempt @ L2-3 space, positive blood return.Repositioned @ L3-4, no blood return, negative test dose. ) Loss of ResistanceTechnique: saline Loss of Resistance: 6 cm Catheter Threaded to: 6 cm Catheter Length at Skin: 12 cm CSF Aspirated from Catheter: negative Blood Aspirated from Catheter: negative Test Dose: lidocaine 1.5% with 1 200 k epinephrine Test Dose Response: negative Local Anesthetic: bupivacaine 0.25% 6 ml Epidural additive: fentanyl 100 mcg Events CSF return negative injection not painful no paresthesia no other event Degree of Difficulty: none Position Post Procedure: left uterine displacement Vital signs monitored and stable throughout. See Anesthesia Intraoprecord for details. Block Performed by: Aspen Danielle CRNA Cosmo Danielle APRN-ALTAGRACIA GENERAL A NESTHESIA ORDERABLES * (ABNORMAL) URINALYSIS ROUTINE AUTO (04/19/2013 9:15 AM SOFTWARE CONSULTANT) Color UA Yellow Straw, Yellow, Dark Yellow 04/19/2013 9:57 AM SOFTWARE CONSULTANT [facility] Clarity UA Cloudy 04/19/2013 9:57 AM SOFTWARE CONSULTANT [facility] Specific [place] UA 1.021 1.005 - 1.030 04/19/2013 9:[address] [facility] pH UA 5.5 5.0 - 8.0 pH 04/19/2013 9:[address] [facility] Protein UA Negative Negative 04/19/2013 9:[address] [facility] Blood UA Negative Negative 04/19/2013 9:[address] [facility] Leukocyte UA 2+(A) Negative 04/19/2013 9:[address] [facility] Nitrite UA Negative Negative 04/19/2013 9:[address] [facility] Glucose UA Negative Negative 04/19/2013 9:[address] [facility] Ketone UA Negative Negative 04/19/2013 9:[address] [facility] Bilirubin UA Negative Negative 04/19/2013 9:[address] [facility] Urobilinogen UA 0.2 0.1 - 1.0 EU/dL 04/19/2013 9:[address] [facility] WBC UA Auto >100(A) 0-2, 2-5 #/hpf 04/19/2013 9:[address] [facility] RBC UA Auto Reflex to manual(A) 0-2, 2-5 #/hpf 04/19/2013 9:[address] [facility] Epithelial Cell UA Auto 10-20(A) 0-2, 2-5 #/hpf 04/19/2013 9:[address] [facility] Bacteria UA Auto 4+(A) None seen 04/19/19 14 9:[address] [facility] Yeast UA Auto Reflex to manual(A) None seen 04/19/2013 9:[address] [facility] Urine URINE SPECIMEN OBTAINED BY CLEAN CATCH PROCEDURE / Unknown Collection / Unknown 04/19/2013 9:15 AM [facility] 04/19/2013 9:38 AM [facility] Vince Garcia MD LAB - URINALYSIS OR DERABLES [facility] [address] [address] * (ABNORMAL) URINALYSIS MICROSCOPIC ONLY (04/19/2013 9:15 AM [facility]) RBC UA 5-10(A) 0-2, 2-5 # /hpf 04/19/2013 10:[address] [facility] WBC UA >100(A) 0-2, 2-5 # /hpf 04/19/2013 10:[address] [facility] Bacteria UA 4+(A) None Seen 04/19/2013 10:[address] [facility] Epithelial Cell UA 10-20(A) 0-2, 2-5 04/19/2013 10:[address] [facility] Urine URINE SPECIMEN OBTAINED BY CLEAN CATCH PROCEDURE / Unknown 04/19/2013 9:15 AM SOFTWARE CONSULTANT 04/19/2013 9:38 AM SOFTWARE CONSULTANT Vince Garcia MD LAB - URINALYSIS OR DERABLES [facility] [address] * TYPE + SCREEN PANEL (04/19/2013 9:14 AM SOFTWARE CONSULTANT) ABO O 04/19/2013 10:[address] [facility] Rh Type Positive 04/19/2013 10:[address] [facility] Antibody Screen Negative 04/19/2013 10:[address] [facility] Comment:History check perfor med. Retype required. Blood Bank BLOOD SPECIMEN / Unknown Venipuncture / Unknown 04/19/2013 9:14 AM SOFTWARE CONSULTANT 04/19/2013 9:38 AM SOFTWARE CONSULTANT Vince Garcia MD LAB - BLOOD BANK OR DERABLES [facility]
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
--- OUTSIDE RECORDS SUMMARY | 2024-05-09 15:48 | XMS_ITS | Clinical Summary ---
Author Organization [facility] Virtual Care Address [address] [place] [phone] Phone Care Team Providers Care Driver Medic Name Role Phone Cresencio Jerez MD Primary Care Provider [phone]- [phone] Allergies No known active allergies Medications ketorolac (TORADOL) 10 mg tablet Take 1 tablet (10 mg total) by mouth every 6 (six) hours as needed for pain 20 tablet 03/02/2024 Active Active Problems No known active problems Encounters Date Type Department Care Team Description 03/02/2024 1:28 PM COUNSELING CENTER MANAGER - 03/02/2024 3:20 PM [facility] Emergency [facility] Emergency Department [address] [place] [address] Pleuritic chest pain (Primary Dx) Discharge Disposition: Discharge to home or self care from Last 3 Months Social History Tobacco Use Types Packs/Day Years [...] on file Sexual Orientation Not on file Obstetrics History Last Filed Vital Signs Vital Sign Reading Time Taken Comments Blood Pressure 127/90 03/02/2024 2:00 PM COUNSELING CENTER MANAGER Pulse 68 03/02/2024 2:00 PM COUNSELING CENTER MANAGER Temperature 37.2 C (99 F) 03/02/2024 11:52 AM COUNSELING CENTER MANAGER Respiratory Rate 18 03/02/2024 2:00 PM COUNSELING CENTER MANAGER Oxygen Saturation 100% 03/02/2024 2:00 PM COUNSELING CENTER MANAGER Inhaled Oxygen Concentration - - Weight 62.4 kg (137 lb 9.1 oz) 03/02/2024 11:52 AM COUNSELING CENTER MANAGER Height 165.1 cm (5' 5 ) 03/02/2024 11:52 AM COUNSELING CENTER MANAGER Body Mass Index 22.89 03/02/2024 11:52 AM COUNSELING CENTER MANAGER Plan of Treatment Health Maintenance Due Date Last Done Comments Breast Cancer Screening-Mammogram 1983 Cervical Cancer Screening 1983 Depression Screening 1983 Hepatitis C Screening 1983 Hepatitis B Screening 08/13/2001 Regular Well Visit/Exam 18-64 08/13/2001 Varicella Vaccines (2 of 2 - 13+ 2-dose series) 09/29/2010 09/01/2010 Influenza Vaccine (#1) 2023 11/28/2017 DTaP/Tdap/Td Vaccine (4 - Td or Tdap) 01/26/2031 01/26/2021, 08/17/2016, 04/19/2013 HPV Vaccines Aged Out No longer eligi ble based on patient's age to complete this topic Pneumococcal vaccine <65 Aged Out No longer eligible based on patient's age to complete this topic Procedures Procedure Name Priority Date/Time Associated Diagnosis Comments CT CHEST PE W CONTRAST ED 2:25 PM COUNSELING CENTER MANAGER TROPONIN T HIGH-SENSITIVITY 2-HOUR Timed 03/02/2024 1:31 PM COUNSELING CENTER MANAGER D-DIMER, QUANTITATIVE STAT 03/02/2024 1:31 PM COUNSELING CENTER MANAGER XR CHEST 1 VIEW ED 03/02/2024 12:35 PM COUNSELING CENTER MANAGER POCT HCG, URINE Routine 03/02/2024 12:30 PM COUNSELING CENTER MANAGER EGFR STAT 03/02/2024 11:57 AM COUNSELING CENTER MANAGER DIFFERENTIAL AUTO STAT 03/02/2024 11: 57 AM COUNSELING CENTER MANAGER TROPONIN T HIGH-SENSITIVITY SERIES (BASELINE, 2HR, 4HR, 6HR) STAT 03/02/2024 11:57 AM COUNSELING CENTER MANAGER COMPREHENSIVE METABOLIC PANEL STAT 03/02/2024 11:57 AM COUNSELING CENTER MANAGER CBC WITH AUTO DIFFERENTIAL STAT 03/02/2024 11:57 AM COUNSELING CENTER MANAGER ECG 12-LEAD STAT 03/02/2024 11:55 AM COUNSELING CENTER MANAGER from Last 3 Months Results * CT Chest PE (CTA) W Contrast (03/02/2024 2:25 PM COUNSELING CENTER MANAGER) Anatomical Region Laterality Modality Body N/A Computed Tomogra phy 03/02/2024 2:35 PM COUNSELING CENTER MANAGER Narrative 03/02/2024 2:38 PM COUNSELING CENTER MANAGER EXAM DESCRIPTION: CT CHEST PE (CTA) W [...] Blas Felton M.D. CH: YESSENIA Report ID: [id number] Reading Location: [place] [address] Procedure Note Blas Felton Jr., MD - [...] 03/02/2024 2:38 PM - Electronically signed by Pemiscotbrando Felton M.D. CH: CH Report ID: [id number] Reading Location: [id number] Cindy LOPEZ IMG CT PROCEDURES Final Result * Troponin T high-sensitivity 2-hour (03/02/2024 1:31 PM COUNSELING CENTER MANAGER) Trop T hs <6 <=14 ng/L Comment: Interpretive Data For further hscTnT resources including the diagnostic algorithm and an aid in interpretation, copy and paste this link: https://nrl.testcatalog.org/show/hsTrop Current Interpretive Data last revised 2020. Testing performed by: [address] [address] Trop T hs delta 0 ng/L GI[facility] Comment:Testing performed by : [address] [address] Trop T hs interp Insignificant GIOVANY Comment:Testing performed by : [address] [address] Blood 03/02/2024 1:31 PM COUNSELING CENTER MANAGER 03/02/2024 1:34 PM COUNSELING CENTER MANAGER Kam Das MD LAB BLOOD ORDERABLES F inal Result [facility] [address] [facility] Department [place] [address] * (ABNORMAL) D-dimer, quantitative (03/02/2024 1:31 PM COUNSELING CENTER MANAGER) D-Dimer 530(H) <=499 ng/mL FEU Comment: Interpretive [...] last revised on 2019. Testing performed by: [facility], [address] [place] [address]., [address] Blood 03/02/2024 1:31 PM COUNSELING CENTER MANAGER 03/02/2024 1:34 PM COUNSELING CENTER MANAGER us Cindy LOPEZ LAB BLOOD ORDERABLES Final Resu lt [facility] [address] [facility] Department [place] [address] * XR Chest 1 Vw Portable (if patient condition/safety warrant portable) (03/02/2024 12:35 PM COUNSELING CENTER MANAGER) Anatomical Region Laterality Modality Body, Chest N/A Computed Radiogr aphy 03/02/2024 12:5 2 PM COUNSELING CENTER MANAGER Narrative 03/02/2024 12:53 PM COUNSELING CENTER MANAGER EXAM DESCRIPTION: XR CHEST 1 VIEW REASON [...] 12:53 PM - Electronically signed by Wilton Eugene M.D. MJ: GAURAV Report ID: [id number] Reading Location: [place] [address] Procedure Note Wilton Eugene MD - 03/02/2024 [...] 12:53 PM - Electronically signed by Wilton Eugene M.D. MJ: GAURAV Report ID: [id number] Reading Location: [place] [address] Kam Das MD IMG XR PROCEDURES Nova l Result * POCT hCG, urine (03/02/2024 12:30 PM COUNSELING CENTER MANAGER) Pathologist [facility] HCG, ur, POC Negative Negative Lot Number [id number] QC Backgroud Clear Acceptable QC Control Line Acceptable Urine 03/02/2024 12:3 0 PM COUNSELING CENTER MANAGER Kam Das MD POINT OF CARE TEST ORD ERABLES Final Result * Troponin T high-sensitivity series (baseline, 2hr, 4hr, 6hr) (03/02/2024 11:57 AM COUNSELING CENTER MANAGER) Pathologist [facility] Trop T hs <6 <=14 ng/L Comment: Interpretive Data For further hscTnT resources including the diagnostic algorithm and an aid in interpretation, copy and paste this link: https://nrl.testcatalog.org/show/hsTrop Current Interpretive Data last revised 2020. Testing performed by: [facility], [address] [place] [address]., [address] Blood 03/02/2024 11:5 7 AM COUNSELING CENTER MANAGER 03/02/2024 12:12 PM COUNSELING CENTER MANAGER Kam Das MD LAB BLOOD ORDERABLES F inal Result Performing Organization Address [facility] de Phone Number [facility] [place] [address] * eGFR (03/02/2024 11:57 AM COUNSELING CENTER MANAGER) eGFR >90 >=60 mL/min/1. 73 m2 Comment: [...] was last reviewed 2020. Testing performed by: [address] [address] Blood 03/02/2024 11:5 7 AM COUNSELING CENTER MANAGER 03/02/2024 12:12 PM COUNSELING CENTER MANAGER Kam Das MD LAB BLOOD ORDERABLES F inal Result Performing Organization Address [facility] Co de Phone Number [facility] [address] [facility] Department [place] [address] * Differential, auto (03/02/2024 11:57 AM COUNSELING CENTER MANAGER) Pathologist [facility] Neutrophil abs 3.0 1.5 - 6.5 K/cumm Comment:Testing performed by : [address] [address] Imm gran abs 0.0 0.0 - 0.1 K/cumm GIOVANY Comment:Testing performed by : [address] [address] Lymphocyte abs 1.6 0.8 - 3.3 K/cumm CERNER Comment:Testing performed by : [address] [address] Monocyte abs 0.4 0.2 - 0.8 K/cumm [facility] Comment:Testing performed by : [address] [address] Eosinophil abs 0.2 0.0 - 0.5 K/cumm [facility] Comment:Testing performed by : [address], [place]., [address] Basophil abs 0.0 0.0 - 0.1 K/cumm [facility] Comment:Testing performed by : [address] [address] Neutrophil pct 57.2 % [facility] Comment: Interpretive Data Percent cell count reference ranges are not reported, since discordance with absolute values may lead to misinterpretation of CBC data. Current Interpretive Data was last revised on 2017. Testing performed by: [address] [address] Imm gran pct 0.2 % [facility] Comment: Interpretive Data Percent cell count reference ranges are not reported, since discordance with absolute values may lead to misinterpretation of CBC data. Current Interpretive Data was last revised on 2017. Testing performed by: [address] [address] Lymphocyte pct 30.2 % [facility] Comment: Interpretive Data Percent cell count reference ranges are not reported, since discordance with absolute values may lead to misinterpretation of CBC data. Current Interpretive Data was last revised on 2017. Testing performed by: [address] [address] Monocyte pct 8.4 % CERNER Comment: Interpretive Data Percent cell count reference ranges are not reported, since discordance with absolute values may lead to misinterpretation of CBC data. Current Interpretive Data was last revised on 2017. Testing performed by: [address] [address] Eosinophil pct 3.4 % CERNER Comment: Interpretive Data Percent cell count reference ranges are not reported, since discordance with absolute values may lead to misinterpretation of CBC data. Current Interpretive Data was last revised on 2017. Testing performed by: [address] [address] Basophil pct 0.6 % GIOVANY MUELLER Comment: Interpretive Data Percent cell count reference ranges are not reported, since discordance with absolute values may lead to misinterpretation of CBC data. Current Interpretive Data was last revised on 2017. Testing performed by: [address] [address] Blood 03/02/2024 11:5 7 AM COUNSELING CENTER MANAGER 03/02/2024 12:12 PM COUNSELING CENTER MANAGER us Kam Das MD LAB BLOOD ORDERABLES F inal Result [facility] [address] [facility] Department [place] [address] * (ABNORMAL) CBC with auto differential (03/02/2024 11:57 AM COUNSELING CENTER MANAGER) WBC 5.3 3.8 - 9.9 K/cumm Comment:Testing performed by : [address] [address] Hgb 14.2 11.9 - 15.5 g/dL GIOVANY MUELLER Comment:Testing performed by : [address] [address] Hct 41.9 35.6 - 45.5 % GI[facility]ANY MUELLER Comment:Testing performed by : [address] [address] Plt 261 150 - 400 K/cumm GIOVANY MUELLER Comment:Testing performed by : [address] [address] MPV 9.3 9.1 - 12.3 fL [facility] MUELLER Comment:Testing performed by : [address] [address] RBC 4.13 3.90 - 5.20 M/cumm GIOVANY MUELLER Comment:Testing performed by : [address] [address] MCV 101.5(H) 81.3 - 96.4 fL GI[facility] MUELLER Comment:Testing performed by : [address] [address] MCH 34.4(H) 27.1 - 33.3 pg GI[facility]ANY MUELLER Comment:Testing performed by : [address] [address] MCHC 33.9 32.3 - 35.7 g/dL GIOVANY MUELLER Comment:Testing performed by : [address] [address] RDW CV 12.4 11.1 - 14.9 % GIOVANY MUELLER Comment:Testing performed by : [address] [address] RDW SD 46.6 35.7 - 48.1 fL [facility] MUELLER Comment:Testing performed by : [address] [address] NRBC abs 0.00 0.00 - 0.01 K/cumm [facility] MUELLER Comment:Testing performed by : [address] [address] Blood Venous blood specimen / Unknown 03/02/2024 11:57 AM COUNSELING CENTER MANAGER 03/02/2024 12:12 PM COUNSELING CENTER MANAGER us Kam Das MD LAB BLOOD ORDERABLES F inal Result [facility] [address] [facility] Department of Laboratories [place], [place] [id number] * Comprehensive metabolic panel (03/02/2024 11:57 AM COUNSELING CENTER MANAGER) Sodium 141 135 - 145 mmol/L Comment:Testing performed by : [address] [address] Potassium, pl 3.9 3.3 - 4.9 mmol/L GIOVANY MUELLER Comment:Testing performed by : [address] [address] Chloride 105 97 - 110 mmol/L GIOVANY MUELLER Comment:Testing performed by : [address], [place]., [address] CO2 26 22 - 32 mmol/L GIOVANY Comment:Testing performed by : [address] [address] Anion gap 10 2 - 15 mmol/L GIOVANY Comment:Testing performed by : [address], [place]., [address] BUN 8 6 - 25 mg/dL GIOVANY Comment:Testing performed by : [address], [place]., [address] Creatinine 0.60 0.60 - 1.10 mg/dL [facility]ANY Comment:Testing performed by : [address], [place]., [address] Glucose 79 70 - 199 mg/dL GIOVANY Comment: Interpretive Data Fasting glucose >/= 126 [...] classification and Diagnosis of Diabetes Diabetes Care 202; 46: S19-S40. Current interpretive data was last revised 2022. Testing performed by: [address] [address] Calcium 9.6 8.5 - 10.3 mg/dL [facility] Comment:Testing performed by : [address] [address] Bilirubin, total 0.3 0.1 - 1.2 mg/dL [facility] Comment:Testing performed by : [address] [address] Protein, pl 7.8 6.5 - 8.5 g/dL [facility] Comment:Testing performed by : [address] [address] Albumin 4.8 3.5 - 5.0 g/dL [facility] Comment:Testing performed by : [address] [address] Alk phos 68 40 - 130 Units/L GI[facility]ANY Comment:Testing performed by : [facility], [address] [place] [address], [address] ALT 32 7 - 45 Units/L GIOVANY Comment:Testing performed by : [facility], [address] [place] [address], [address] AST 35 10 - 45 Units/L GI[facility]ANY Comment:Testing performed by : [address], [address] Blood 03/02/2024 11:5 7 AM COUNSELING CENTER MANAGER 03/02/2024 12:12 PM COUNSELING CENTER MANAGER us Kam Das MD LAB BLOOD ORDERABLES F inal Result [place] [id number] [facility] Department [place] [address] * ECG 12 lead (03/02/2024 11:55 AM COUNSELING CENTER MANAGER) Ventricular Rate EKG/Min 74 BPM [facility] Atrial Rate 74 BPM [facility] [place]-Interval (MSEC) 120 ms [facility] QRS-Interval (MSEC) 80 ms [facility] QT-Interval (MSEC) 386 ms [facility] QTc 428 ms [facility] P [place] 74 degrees [facility] R [place] 6 degrees [facility] T [place] 54 degrees [facility] Diagnosis Normal sinus rhythm Possible Left atrial enlargement Possible Anterior infarct (cited on or before 07-JUN-2016) Abnormal ECG When compared with ECG of 29-SEP-2023 10:43, QRS axis Shifted right Confirmed by CHATO COLVIN M.D. ([id number]) on 03/02/2024 11:41:28 PM [facility] 03/02/2024 11:5 5 AM COUNSELING CENTER MANAGER 03/02/2024 11:41 PM COUNSELING CENTER MANAGER us Kam Das MD ECG ORDERABLES Final Result Performing Organization Address City/[facility]/ZIP Co de Phone Number [facility] from Last 3 Months Insurance [employer] Address: [facility] [id number] [place] [address] Care Teams Driver Medic Relationship Specialty Start Date End Date Cresencio Jerez MD [address] [facility] [address] [place] [address] PCP - General Family Medicine 03/02/24
== END 2024-05-09 13:56 | disposition home or self-care (01) ==
LOC: ANHSURGERY 14:02
PROVIDERS: Anesthesiology; PCP Family Medicine; Visit Provider Surgery Plastic and Reconstructive Surgery
DX: L57.4 Cutis laxa senilis (principal); Z01.818 Encounter for other preprocedural examination
CPT/HCPCS: 36415; 85014; 85018; 93005

== ENCOUNTER 2024-05-15 00:46 | Day surgery (SDC) | payer OTHER, SELFPAY ==
[2024-05-04 14:50] VITALS: BMI 22.6
--- NOTE | 2024-05-04 15:33 | PC.NURSE ---
Report to the Outpatient Waiting Room, entrance under the green pavilion located off [facility], at time _0600AM on date _05/04/24 . Planned Procedure Time: _0730AM .? Time changes happen often and if your time is changed the preop area will call you the afternoon before. - You and your visitor will be asked to self-screen and do not enter if you have any COVID symptoms. Please call surgeon if you need to reschedule. - A mask is optional within the hospital at this time. Patients may have clear liquids (water, carbonated beverages, clear teas, apple juice) until 3 hours prior to surgery with a maximum of 20 ounces. - No food from midnight until time of surgery and no smoking, or chewing tobacco (or any form of nicotine). No chewing gum, candy or mints. Take only the following medications with a SIP of water on the morning of surgery: __BUSPIRONE DO NOT STOP ANY OF YOUR OTHER PRESCRIPTION MEDICATIONS PRIOR TO SURGERY EXCEPT THE FOLLOWING Hold all vitamins and supplements for 3 days per anesthesiologist. Medications to discontinue per physician N/A Date to take last dose N/A Please no make-up, nail khmer, hairspray, perfume, deodorant, or body powder the day of surgery.? No jewelry (including any body piercings) or valuables the day of surgery, leave them at home.? Please take a shower or bath the night before, or the morning of, surgery with an antibacterial soap.? Wear comfortable, loose fitting clothing.? - Jewelry must be removed prior to entering the operating room.? Rings and piercings that are not removed may be cut off. - The hospital will not accept responsibility for valuables.? - Please leave all valuables, including medications, at home the day of surgery. If you are going home after surgery, a licensed straddle bug driver must drive you home.? - NO public transportation without another adult if you receive anesthesia. - We recommend that an adult stay with you for 24 hours following discharge. - We also recommend that you do not drive, make important decision, drink alcoholic beverages, or take any drugs that were not prescribed by your health care provider for at least 24 hours after your discharge time. Follow any additional instructions given to you from your surgeon. Telephone instructions given to __CRYSTAL and asked if any additional questions and then verbalized understanding. Patient advised to call surgeon office or pre surgery nurse liaison [phone] if any additional questions.
[2024-05-15] VITALS (13 sets, daily range): BP systolic 115–137; BP diastolic 71–95; PULSE 60–88; RESP 12–20; TEMP 36.6–36.7; O2SAT 98–100; BMI 23.6
--- OUTSIDE RECORDS SUMMARY | 2024-05-15 00:50 | XMS_ITS | Encounter Summary ---
Author Organization [facility] Address [address] [place] [address] Care Team Providers Care Marine Scientist Name Role Phone Cresencio Jerez MD Primary Care Provider Encounter Details Date Type Department Care Team (Late st Contact Info) Description 10/17/2023 MyCJDCPhosphatet Message Enc [facility] Family Medicine - [place] [address] [facility] [place] [id number] Cresencio Jerez MD [address] [place], [place] [id number] Michaela Social History Tobacco Use Types Packs/Day [...] documented as of this encounter Care Teams Marine Scientist Relationship Specialty Start Date End Date Cresencio Jerez MD [address] [place] [address] PCP - General FAMILY PRACTICE 11/17/18 documented as of this encounter
--- OUTSIDE RECORDS SUMMARY | 2024-05-15 00:50 | XMS_ITS | Referral Summary ---
Author Organization [facility] Address [address] [place] [address] Care Team Providers Care Production Helper Name Role Phone Unavailable Primary Care Provider Unavailabl e Source Comments [facility],non-owned Affiliates and Associated Physician Practices is amultiple site organization consisting of ambulatory clinics and hospital sitesin [place], [place], [place] and [place]. This disclosure is being madepursuant to the Care Everywhere program and may not contain all information available regarding this patient. Last updated 17.[facility] Allergies No known active allergies Medications * [...] Comments Blood Pressure 115/53 04/21/2013 8:31 AM CHILD AND ADOLESCENT PSYCHOLOGIST Pulse 81 04/19/2013 12:52 PM CHILD AND ADOLESCENT PSYCHOLOGIST Temperature 36.5 C (97.7 F) 04/21/2013 8:31 AM CHILD AND ADOLESCENT PSYCHOLOGIST Respiratory Rate 16 04/21/2013 8:31 AM CHILD AND ADOLESCENT PSYCHOLOGIST Oxygen Saturation 99% 04/19/2013 2:30 PM CHILD AND ADOLESCENT PSYCHOLOGIST Inhaled Oxygen Concentration - - Weight 74.8 kg (165 lb) 04/19/2013 8:57 AM CHILD AND ADOLESCENT PSYCHOLOGIST Height 165.1 cm (5' 5 ) 04/19/2013 8:57 AM CHILD AND ADOLESCENT PSYCHOLOGIST Body Mass Index 27.46 04/19/2013 8:57 AM CHILD AND ADOLESCENT PSYCHOLOGIST Functional Status Functional Status Response Date of [...]
--- OUTSIDE RECORDS SUMMARY | 2024-05-15 00:50 | XMS_ITS | Data Portability ---
Author Organization [employer] , [facility]_Secretary Address [address] [place] [address] Assessment No assessment recorded. Plan of Treatment Reminders Order Date Submit Date Provider Last Modified By Organization Details Last Modified Time Details Appointments None recorded. Lab test, urine 2024 025 [facility], [address] [place], [address], 5 14:52:33 HPV E6+E7 mRNA, qualitative PCR, cervix 2024 025 RON Anvik Rachid, [address] [place] [address], [address], 5 14:18:36 pap, LB 2024 025 [facility], [address] [place], [address], 5 17:57:02 Referral None recorded. Procedures None recorded. Surgeries None recorded. Imaging MAMMO, screening, digital, bilateral 2024 025 [facility], [address] [facility] Chantel Long, [address], [place], [address], 5 12:44:04 US, transvagina l 2024 025 RON Not available 5 12:39:27 Medication Orders Mirena 21 mcg/24 hr (up to 8 years) 52 mg intrauterin e device 2024 025 [facility], [address] [place], [place], [id number], 14:52:33 doxycycline hyclate 100 mg capsule 2024 025 [facility], [address] [place], [place], [id number], 16:26:15 estradiol 1 mg tablet 2024 025 [facility], [address] [place], [place], [id number], 16:26:16 Patient TargetsNo targets recorded. Patient Instructions Encounter Date Encounter Id Patient Instructions Last Modified By Organization Details Last Modified Time 04/03/2024 [id number] intrauterine device (IUD) insertion: care instructions ckabat [...] l cervi letty cytol ogy. Not Available [address], [address], 04/04/2024 14:18:36 04/03/1904/06/2024 THINP REP TIS PAP clinical information: normal None given Not Available Patterns [facility] [address] [place], [address], 04/06/2024 17:57:02 04/03/19 25 04/06/2024 THINP REP TIS PAP LMP: normal NONE GIVEN Not Available Patterns [facility] [address] [place], [address], 04/06/2024 17:57:02 04/03/19 25 04/06/2024 THINP REP TIS PAP prev. Pap: normal NONE GIVEN Not Available [address], [address], 04/06/2024 17:57:02 04/03/19 25 04/06/2024 THINP REP TIS PAP prev. BX: normal NONE GIVEN Not Available [address], [address], 04/06/2024 17:57:02 04/03/19 25 04/06/2024 THINP REP TIS PAP source: normal Cervi x Not Available [address], [address], 04/06/2024 17:57:02 04/03/19 25 04/06/2024 THINP REP TIS PAP statement of adequacy: normal Satis facto ry for evalu ation . Endoc ervic al/tr ansfo rmati on zone compo nent prese nt. Age and/o r menst rual statu s not provi ded Not Available [address], [address], 04/06/2024 17:57:02 04/03/19 25 04/06/2024 THINP REP TIS PAP interpretati on/result: normal Cytol ogy Resul ts: Negat millie for intra epith elial lesio n or nhi kelley . Not Available [address], [address], 04/06/2024 17:57:02 04/03/1904/06/2024 THINP REP TIS PAP comment: normal This Pap test has been evalu ated with compu ter carlito gonsalo [employer] ology . Not Available [address], [address], 04/06/2024 17:57:02 04/03/19 25 04/06/2024 THINP REP TIS PAP cytotechnolo gist: normal MEF, CT( CP) CT scree matt locat ion: [place] [address] [place] [address] Not Available Patterns [place] [address] [place], [address], 04/06/2024 17:57:02 04/03/19 25 04/06/2024 THINP REP [...] clini letty infor matio n. Not Available Patterns [place] [address] [address], [place], [address], 04/06/2024 17:57:02 04/03/19 25 04/03/2024 pregn sonia test, urine HCG negati ve Not Available [address], [address], 04/03/2024 13:36:43 04/03/19 25 04/03/2024 US, trans vagin al No observ ation record ed. [email or web address] Korin [address], [place], [address], 04/17/2024 12:39:27 04/11/19 25 04/03/2024 MAMMO , scree matt, digit al, bilat eral No observ ation record ed. [email or web address] [facility] [address] [place], [address], 04/15/2024 20:14:04 04/19/19 25 04/03/2024 MAMMO , kennae matt, digit al, bilat eral No observ ation record ed. [email or web address] [address], [address], 04/19/2024 15:15:09 Result Notes Documentation Provider Name and Address Organization Details Recorded Time Mammo, Screening, Digital, Bilateral : Mammogram Mammogram Right: normal Left: normal Marie Longo, ULISSES [address] [place], [address], [facility] 04/19/2024 15:15:09 Procedures Surgical History Date Name Laterality Status Provider Name and Address Organization Details Recorded Time 04/03/19 25 [facility] 04/03/2024 14:52:13 04/03/19 25 Most Recent Mammogram completed Jorge A Parks [place] [facility] 04/16/2024 17:16:08 augmentation of bilateral breasts completed [facility] 04/03/2024 14:20:12 Imaging Results Imaging Date Name Status LastModified by Organization Details LastModified Time 04/03/2024 US, transvaginal completed ckabat Korin [address], [place], [address], 04/17/2024 12:39:27 04/03/2024 MAMMO, screening, digital, bilateral completed [email or web address] [address], [address], 04/15/2024 20:14:04 04/03/2024 MAMMO, screening, digital, bilateral completed [email or web address] [address], [address], 04/19/2024 15:15:09 Procedure Notes None recorded. Medical [...] Updated DateTime 04/03/2024 162.56 cm 23.7 kg/m2 95925.75 g 138 mm[Hg] 78 mm[Hg] Nellie Barreto [facility] 14:19:22 Social History None recorded. Functional Status None recorded. Mental Status None recorded. Family History Nothing Reported. Medical History Condition Response Other Cancer N High Blood Pressure N Colon Cancer N Cytomegalovirus N Hyperthyroidism N MRSA N Blood Transfusion N Herpes (HSV) N Breast Cancer N Lung Cancer N Depression N Hypothyroidism N Incontinence N Panic Attacks N Neurological Disorder N Deep Vein Thrombosis N Anxiety Disorder N Autoimmune disease N Arthritis N Tuberculosis/Positive PPD N Shingles N Infertility N Polycystic Ovarian Syndrome N Cervical Cancer N Hematuria N Chlamydia N Stroke N Varicosities N Seasonal allergies N Crohn's Disease N Alzheimer's/Dementia N COPD/Emphysema N HPV/Genital Warts N Endometriosis N IBS (Irritable Bowel Syndrome) N History of Abnormal Pap N High Cholesterol N Liver Disease N Kidney Infection N Fibromyalgia N Ulcer N Kidney Disease N HIV N Gallbladder disease N Sickle Cell Disease/Trait N Von Willebrand disease N ADD/ADHD N Eating Disorder N Anemia N Diabetes Mellitus (non-insulin dependent ) N Multiple Sclerosis N Ovarian Problems N Gonorrhea N Frequent Urinary Tract infections N Osteopenia N Headaches/migraines N GERD (reflux) N Ovarian Cancer N Diabetes (insulin dependent) N Seizures/Epilepsy N Breast Problems N Fibroids N Asthma N Heart Attack N Lupus N Endometrial Cancer N Rubella [...] SNOMED-CT Code Diagnosis ICD10 Code Diagnosis Note [id number] Wilton Us MD [facility] [address] [place] [address] 04/03/2024 14:02:12 04/04/2024 17:26:02 Insertion of intrauterine contraceptive device 97909595 Z30.430 Cancer cer vix screening status 044143432 Z12.2 y.o. here for annual exam. - [...] for annual or PRN Screening mammography 24 693617 Z12.31 Uses IUD (intrauterine device) contraception [id number] Z97.5 you may experience some cramping for [...] Mandujano Member ID Guarantor Name 04/03/2024 1 [facility] [id number] Michaela Perez [id number] Michaela Perez Notes Date Note Type Note Provider Name and Address Organization Details Recorded Time 04/03/2024 text/html Patient here for IUD replacement. Last IUD inserted 2018. Due for Pap smear. Due for mammogram. Appointment for mammogram after IUD placement and US. No gyne concerns. Wilton Us MD [facility], [place], [address], [facility] 04/10/2024 18:39:02 OBGyn Episode No OBEpisode recorded.
--- OUTSIDE RECORDS SUMMARY | 2024-05-15 00:50 | XMS_ITS | Clinical Summary ---
Author Organization [facility] Virtual Care Address [address] [place] [phone] Phone Care Team Providers Care Revenue Field Agent Name Role Phone Cresencio Jerez MD Primary Care Provider [phone] Allergies No known active allergies Medications ketorolac (TORADOL) 10 mg tablet Take 1 tablet (10 mg total) by mouth every 6 (six) hours as needed for pain 20 tablet 03/02/2024 Active Active Problems No known active problems Encounters Date Type Department Care Team Description 03/02/2024 1:28 PM BILINGUAL SALES ASSISTANT - 03/02/2024 3:20 PM [facility] Emergency [facility] Emergency Department [address] [place] [id number] Pleuritic chest pain (Primary Dx) Discharge Disposition: [...] Comments Blood Pressure 127/90 03/02/2024 2:00 PM BILINGUAL SALES ASSISTANT Pulse 68 03/02/2024 2:00 PM BILINGUAL SALES ASSISTANT Temperature 37.2 C (99 F) 03/02/2024 11:52 AM BILINGUAL SALES ASSISTANT Respiratory Rate 18 03/02/2024 2:00 PM BILINGUAL SALES ASSISTANT Oxygen Saturation 100% 03/02/2024 2:00 PM BILINGUAL SALES ASSISTANT Inhaled Oxygen Concentration - - Weight 62.4 kg (137 lb 9.1 oz) 03/02/2024 11:52 AM BILINGUAL SALES ASSISTANT Height 165.1 cm (5' 5 ) 03/02/2024 11:52 AM BILINGUAL SALES ASSISTANT Body Mass Index 22.89 03/02/2024 11:52 AM BILINGUAL SALES ASSISTANT Plan of Treatment Health Maintenance Due Date [...] CHEST PE W CONTRAST ED 2:25 PM BILINGUAL SALES ASSISTANT TROPONIN T HIGH-SENSITIVITY 2-HOUR Timed 03/02/2024 1:31 PM BILINGUAL SALES ASSISTANT D-DIMER, QUANTITATIVE STAT 03/02/2024 1:31 PM BILINGUAL SALES ASSISTANT XR CHEST 1 VIEW ED 03/02/2024 12:35 PM BILINGUAL SALES ASSISTANT POCT HCG, URINE Routine 03/02/2024 12:30 PM BILINGUAL SALES ASSISTANT EGFR STAT 03/02/2024 11:57 AM BILINGUAL SALES ASSISTANT DIFFERENTIAL AUTO STAT 03/02/2024 11: 57 AM BILINGUAL SALES ASSISTANT TROPONIN T HIGH-SENSITIVITY SERIES (BASELINE, 2HR, 4HR, 6HR) STAT 03/02/2024 11:57 AM BILINGUAL SALES ASSISTANT COMPREHENSIVE METABOLIC PANEL STAT 03/02/2024 11:57 AM BILINGUAL SALES ASSISTANT CBC WITH AUTO DIFFERENTIAL STAT 03/02/2024 11:57 AM BILINGUAL SALES ASSISTANT ECG 12-LEAD STAT 03/02/2024 11:55 AM BILINGUAL SALES ASSISTANT from Last 3 Months Results * CT Chest PE (CTA) W Contrast (03/02/2024 2:25 PM BILINGUAL SALES ASSISTANT) Anatomical Region Laterality Modality Body N/A Computed Tomogra phy 03/02/2024 2:35 PM BILINGUAL SALES ASSISTANT Narrative 03/02/2024 2:38 PM BILINGUAL SALES ASSISTANT EXAM DESCRIPTION: CT CHEST PE (CTA) W [...] Blas Felton M.D. CH: YESSENIA Report ID: [id number] Reading Location: [place] [address] Procedure Note Blas Felton Jr., MD - [...] 03/02/2024 2:38 PM - Electronically signed by [place] Girardeaubrando Felton M.D. CH: CH Report ID: [id number] Reading Location: [id number] Cindy LOPEZ IMG CT PROCEDURES Final Result * Troponin T high-sensitivity 2-hour (03/02/2024 1:31 PM BILINGUAL SALES ASSISTANT) Trop T hs <6 <=14 ng/L Comment: Interpretive Data For further hscTnT resources including the diagnostic algorithm and an aid in interpretation, copy and paste this link: https://nrl.testcatalog.org/show/hsTrop Current Interpretive Data last revised 2020. Testing performed by: [address] [address] Trop T hs delta 0 ng/L [place] Comment:Testing performed by : [address] [address] Trop T hs interp Insignificant [facility] Comment:Testing performed by : [address] [address] Blood 03/02/2024 1:31 PM BILINGUAL SALES ASSISTANT 03/02/2024 1:34 PM BILINGUAL SALES ASSISTANT Kam Das MD LAB BLOOD ORDERABLES F inal Result [facility] [address] [facility] Department [place] [address] * (ABNORMAL) D-dimer, quantitative (03/02/2024 1:31 PM BILINGUAL SALES ASSISTANT) D-Dimer 530(H) <=499 ng/mL FEU Comment: Interpretive [...] last revised on 2019. Testing performed by: [facility], [address] [place] [address]., [address] Blood 03/02/2024 1:31 PM BILINGUAL SALES ASSISTANT 03/02/2024 1:34 PM BILINGUAL SALES ASSISTANT us Cindy LOPEZ LAB BLOOD ORDERABLES Final Resu lt [facility] [address] [facility] Department [place] [address] * XR Chest 1 Vw Portable (if patient condition/safety warrant portable) (03/02/2024 12:35 PM BILINGUAL SALES ASSISTANT) Anatomical Region Laterality Modality Body, Chest N/A Computed Radiogr aphy 03/02/2024 12:5 2 PM BILINGUAL SALES ASSISTANT Narrative 03/02/2024 12:53 PM BILINGUAL SALES ASSISTANT EXAM DESCRIPTION: XR CHEST 1 VIEW REASON [...] Wilton Eugene M.D. MJ: GAURAV Report ID: [id number] Reading Location: [place] [address] Procedure Note Wilton Eugene MD - 03/02/2024 [...] Wilton Eugene M.D. MJ: GAURAV Report ID: [id number] Reading Location: [place] [address] Kam Das MD IMG XR PROCEDURES Nova l Result * POCT hCG, urine (03/02/2024 12:30 PM BILINGUAL SALES ASSISTANT) Pathologist [facility] HCG, ur, POC Negative Negative Lot Number [id number] QC Backgroud Clear Acceptable QC Control Line Acceptable Urine 03/02/2024 12:3 0 PM BILINGUAL SALES ASSISTANT Kam Das MD POINT OF CARE TEST ORD ERABLES Final Result * Troponin T high-sensitivity series (baseline, 2hr, 4hr, 6hr) (03/02/2024 11:57 AM BILINGUAL SALES ASSISTANT) Pathologist [facility] Trop T hs <6 <=14 ng/L Comment: Interpretive Data For further hscTnT resources including the diagnostic algorithm and an aid in interpretation, copy and paste this link: https://nrl.testcatalog.org/show/hsTrop Current Interpretive Data last revised 2020. Testing performed by: [facility], [address] [place] [address]., [address] Blood 03/02/2024 11:5 7 AM BILINGUAL SALES ASSISTANT 03/02/2024 12:12 PM BILINGUAL SALES ASSISTANT Kam Das MD LAB BLOOD ORDERABLES F inal Result Performing Organization Address [facility] de Phone Number [facility] [place] [address] * eGFR (03/02/2024 11:57 AM BILINGUAL SALES ASSISTANT) eGFR >90 >=60 mL/min/1. 73 m2 Comment: [...] was last reviewed 2020. Testing performed by: [address] [address] Blood 03/02/2024 11:5 7 AM BILINGUAL SALES ASSISTANT 03/02/2024 12:12 PM BILINGUAL SALES ASSISTANT Kam Das MD LAB BLOOD ORDERABLES F inal Result Performing Organization Address [facility] Co de Phone Number [facility] [address] [facility] Department [place] [employer] [place] [address] * Differential, auto (03/02/2024 11:57 AM BILINGUAL SALES ASSISTANT) Pathologist [facility] Neutrophil abs 3.0 1.5 - 6.5 K/cumm Comment:Testing performed by : [address] [address] Imm gran abs 0.0 0.0 - 0.1 K/cumm [place] Comment:Testing performed by : [address] [address] Lymphocyte abs 1.6 0.8 - 3.3 K/cumm CERNER Comment:Testing performed by : [address] [address] Monocyte abs 0.4 0.2 - 0.8 K/cumm [facility] Comment:Testing performed by : [address] [address] Eosinophil abs 0.2 0.0 - 0.5 K/cumm [facility] Comment:Testing performed by : [address], [place]., [address] Basophil abs 0.0 0.0 - 0.1 K/cumm [facility] Comment:Testing performed by : [address] [address] Neutrophil pct 57.2 % [facility] Comment: Interpretive Data Percent cell count reference ranges are not reported, since discordance with absolute values may lead to misinterpretation of CBC data. Current Interpretive Data was last revised on 2017. Testing performed by: [address] [address] Imm gran pct 0.2 % [facility] Comment: Interpretive Data Percent cell count reference ranges are not reported, since discordance with absolute values may lead to misinterpretation of CBC data. Current Interpretive Data was last revised on 2017. Testing performed by: [address] [address] Lymphocyte pct 30.2 % [facility] Comment: Interpretive Data Percent cell count reference ranges are not reported, since discordance with absolute values may lead to misinterpretation of CBC data. Current Interpretive Data was last revised on 2017. Testing performed by: [address] [address] Monocyte pct 8.4 % CERNER Comment: Interpretive Data Percent cell count reference ranges are not reported, since discordance with absolute values may lead to misinterpretation of CBC data. Current Interpretive Data was last revised on 2017. Testing performed by: [address] [address] Eosinophil pct 3.4 % CERNER Comment: Interpretive Data Percent cell count reference ranges are not reported, since discordance with absolute values may lead to misinterpretation of CBC data. Current Interpretive Data was last revised on 2017. Testing performed by: [address] [address] Basophil pct 0.6 % [facility] MUELLER Comment: Interpretive Data Percent cell count reference ranges are not reported, since discordance with absolute values may lead to misinterpretation of CBC data. Current Interpretive Data was last revised on 2017. Testing performed by: [address] [address] Blood 03/02/2024 11:5 7 AM BILINGUAL SALES ASSISTANT 03/02/2024 12:12 PM BILINGUAL SALES ASSISTANT us Kam Das MD LAB BLOOD ORDERABLES F inal Result [facility] [address] [facility] Department [place] [address] * (ABNORMAL) CBC with auto differential (03/02/2024 11:57 AM BILINGUAL SALES ASSISTANT) WBC 5.3 3.8 - 9.9 K/cumm Comment:Testing performed by : [address] [address] Hgb 14.2 11.9 - 15.5 g/dL [facility] MUELLER Comment:Testing performed by : [address] [address] Hct 41.9 35.6 - 45.5 % [facility] MUELLER Comment:Testing performed by : [address] [address] Plt 261 150 - 400 K/cumm [facility] MUELLER Comment:Testing performed by : [address] [address] MPV 9.3 9.1 - 12.3 fL [facility] MUELLER Comment:Testing performed by : [address] [address] RBC 4.13 3.90 - 5.20 M/cumm [facility] MUELLER Comment:Testing performed by : [address] [address] MCV 101.5(H) 81.3 - 96.4 fL [facility] MUELLER Comment:Testing performed by : [address] [address] MCH 34.4(H) 27.1 - 33.3 pg [facility] MUELLER Comment:Testing performed by : [address] [address] MCHC 33.9 32.3 - 35.7 g/dL [facility] MUELLER Comment:Testing performed by : [address] [address] RDW CV 12.4 11.1 - 14.9 % [facility] MUELLER Comment:Testing performed by : [address] [address] RDW SD 46.6 35.7 - 48.1 fL [facility] MUELLER Comment:Testing performed by : [address] [address] NRBC abs 0.00 0.00 - 0.01 K/cumm [facility] MUELLER Comment:Testing performed by : [address] [address] Blood Venous blood specimen / Unknown 03/02/2024 11:57 AM BILINGUAL SALES ASSISTANT 03/02/2024 12:12 PM BILINGUAL SALES ASSISTANT us Kam Das MD LAB BLOOD ORDERABLES F inal Result [facility] [address] [facility] Department of Laboratories [place], [place] [id number] * Comprehensive metabolic panel (03/02/2024 11:57 AM BILINGUAL SALES ASSISTANT) Sodium 141 135 - 145 mmol/L Comment:Testing performed by : [address] [address] Potassium, pl 3.9 3.3 - 4.9 mmol/L [facility] MUELLER Comment:Testing performed by : [address] [address] Chloride 105 97 - 110 mmol/L [facility] MUELLER Comment:Testing performed by : [address], [place]., [address] CO2 26 22 - 32 mmol/L [facility] Comment:Testing performed by : [address] [address] Anion gap 10 2 - 15 mmol/L [facility] Comment:Testing performed by : [address], [place]., [address] BUN 8 6 - 25 mg/dL [facility] Comment:Testing performed by : [address], [place]., [address] Creatinine 0.60 0.60 - 1.10 mg/dL [facility] Comment:Testing performed by : [address], [place]., [address] Glucose 79 70 - 199 mg/dL [facility] [...] was last revised 2022. Testing performed by: [address] [address] Calcium 9.6 8.5 - 10.3 mg/dL [facility] Comment:Testing performed by : [address] [address] Bilirubin, total 0.3 0.1 - 1.2 mg/dL [facility] Comment:Testing performed by : [address] [address] Protein, pl 7.8 6.5 - 8.5 g/dL [facility] Comment:Testing performed by : [address] [address] Albumin 4.8 3.5 - 5.0 g/dL [facility] Comment:Testing performed by : [address] [address] Alk phos 68 40 - 130 Units/L [facility] Comment:Testing performed by : [facility], [address] [place] [address], [address] ALT 32 7 - 45 Units/L [facility] Comment:Testing performed by : [facility], [address] [place] [address], [address] AST 35 10 - 45 Units/L [facility] Comment:Testing performed by : [address], [address] Blood 03/02/2024 11:5 7 AM BILINGUAL SALES ASSISTANT 03/02/2024 12:12 PM BILINGUAL SALES ASSISTANT us Kam Das MD LAB BLOOD ORDERABLES F inal Result [place] [address] [facility] Department [place] [address] * ECG 12 lead (03/02/2024 11:55 AM BILINGUAL SALES ASSISTANT) Ventricular Rate EKG/Min 74 BPM [facility] Atrial Rate [address] [facility] ID-Interval (MSEC) 120 ms [facility] QRS-Interval (MSEC) 80 ms [facility] QT-Interval (MSEC) 386 ms [facility] QTc [address] [facility] P [place] 74 degrees [facility] R [place] 6 degrees [facility] T [place] [address] [facility] Diagnosis Normal sinus rhythm Possible Left atrial enlargement Possible Anterior infarct (cited on or before 07-JUN-2016) Abnormal ECG When compared with ECG of 29-SEP-2023 10:43, QRS axis Shifted right Confirmed by CHATO COLVIN M.D. ([id number]) on 03/02/2024 11:41:28 PM [facility] 03/02/2024 11:5 5 AM BILINGUAL SALES ASSISTANT 03/02/2024 11:41 PM BILINGUAL SALES ASSISTANT us Kam Das MD ECG ORDERABLES Final Result Performing Organization Address City/[facility]/ZIP Co de Phone Number [facility] from Last 3 Months Insurance [employer] Address: [facility] [id number] [place] [address] Care Teams Revenue Field Agent Relationship Specialty Start Date End Date Cresencio Jerez MD [address] [facility] [address] [place] [address] PCP - General Family Medicine 03/02/24
--- OUTSIDE RECORDS SUMMARY | 2024-05-15 00:50 | XMS_ITS | Clinical Summary ---
Author Organization [facility] Address [facility] [place] [address] Care Team Providers Care Assembler Utility Buildings Name Role Phone Cresencio Jerez MD Primary [...] Type Department Care Team Description 04/04/2024 Telephone [facility] Family Medicine - [place] [address] [facility] [address], [address] [place] [address] Cresencio Jerez MD Problem 03/02/2024 Scan [facility] SRV[facility] Scanned, Doc Med Group from Last 3 Months Immunizations Name Administration [...] Comments Blood Pressure 138/88 01/16/2024 1:23 PM ASSOCIATE PATHOLOGIST Pulse 75 01/16/2024 1:23 PM ASSOCIATE PATHOLOGIST Temperature 36.1 C (96.9 F) 01/16/2024 1:23 PM ASSOCIATE PATHOLOGIST Respiratory Rate 16 01/16/2024 1:23 PM ASSOCIATE PATHOLOGIST Oxygen Saturation 99% 01/16/2024 1:23 PM ASSOCIATE PATHOLOGIST Inhaled Oxygen Concentration - - Weight 59.4 kg (131 lb) 01/16/2024 1:23 PM ASSOCIATE PATHOLOGIST Height 165.1 cm (5' 5 ) 01/16/2024 1:23 PM ASSOCIATE PATHOLOGIST Body Mass Index 21.8 01/16/2024 1:23 PM ASSOCIATE PATHOLOGIST Plan of Treatment Health Maintenance Due Date [...] HPV 08/13/2013 Mammogram Screening 2023 COVID-19 Vaccine (2023-2 5 season) 2023 Influenza Adult (#1) 2023 11/28/2017, 11/28/2017 PHQ-2 (Physician Fortuna) 02/29/2024 01/16/2024 DTaP, Tdap and Td Vaccines [...] patient's age to complete this topic Insurance [facility] MEDICAID Care Teams Assembler Utility Buildings Relationship Specialty Start Date End Date Cresencio Jerez MD [address] [facility] [address] [place] [address] PCP - General FAMILY PRACTICE 11/17/18
--- OUTSIDE RECORDS SUMMARY | 2024-05-15 00:50 | XMS_ITS | Referral Summary ---
Author Organization [facility] Virtual Care Address [address] [place] [phone] Phone Care Team Providers Care Leasing Assistant Name Role Phone Cresencio Jerez MD Primary Care Provider [phone]- [phone] Encounters Date Type Department Care Team Description 03/02/2024 1:28 PM SLURRY MAN - 03/02/2024 3:20 PM SLURRY MAN Emergency [facility] Emergency Department [address] [place] [id number] Pleuritic chest pain (Primary Dx) Discharge [...] Comments Blood Pressure 127/90 03/02/2024 2:00 PM SLURRY MAN Pulse 68 03/02/2024 2:00 PM SLURRY MAN Temperature 37.2 C (99 F) 03/02/2024 11:52 AM SLURRY MAN Respiratory Rate 18 03/02/2024 2:00 PM SLURRY MAN Oxygen Saturation 100% 03/02/2024 2:00 PM SLURRY MAN Inhaled Oxygen Concentration - - Weight 62.4 kg (137 lb 9.1 oz) 03/02/2024 11:52 AM SLURRY MAN Height 165.1 cm (5' 5 ) 03/02/2024 11:52 AM SLURRY MAN Body Mass Index 22.89 03/02/2024 11:52 AM SLURRY MAN Plan of Treatment Not on file Procedures Procedure Name Priority Date/Time Associated Diagnosis Comments CT CHEST PE W CONTRAST ED 2:25 PM SLURRY MAN TROPONIN T HIGH-SENSITIVITY 2-HOUR Timed 03/02/2024 1:31 PM SLURRY MAN D-DIMER, QUANTITATIVE STAT 03/02/2024 1:31 PM SLURRY MAN XR CHEST 1 VIEW ED 03/02/2024 12:35 PM SLURRY MAN POCT HCG, URINE Routine 03/02/2024 12:30 PM SLURRY MAN EGFR STAT 03/02/2024 11:57 AM SLURRY MAN DIFFERENTIAL AUTO STAT 03/02/2024 11: 57 AM SLURRY MAN TROPONIN T HIGH-SENSITIVITY SERIES (BASELINE, 2HR, 4HR, 6HR) STAT 03/02/2024 11:57 AM SLURRY MAN COMPREHENSIVE METABOLIC PANEL STAT 03/02/2024 11:57 AM SLURRY MAN CBC WITH AUTO DIFFERENTIAL STAT 03/02/2024 11:57 AM SLURRY MAN ECG 12-LEAD STAT 03/02/2024 11:55 AM SLURRY MAN from Last 3 Months Results * CT Chest PE (CTA) W Contrast (03/02/2024 2:25 PM SLURRY MAN) Anatomical Region Laterality Modality Body N/A Computed Tomogra phy 03/02/2024 2:35 PM SLURRY MAN Narrative 03/02/2024 2:38 PM SLURRY MAN EXAM DESCRIPTION: CT CHEST PE (CTA) W [...] Blas Felton M.D. CH: YESSENIA Report ID: [id number] Reading Location: [id number] Procedure Note Blas Felton Jr., MD - [...] by Blas Felton M.D. CH: Report ID: [id number] Reading Location: [place] [address] PROCEDURES Final Result * Troponin T high-sensitivity 2-hour (03/02/2024 1:31 PM SLURRY MAN) Trop T hs <6 <=14 ng/L Comment: Interpretive Data For further hscTnT resources including the diagnostic algorithm and an aid in interpretation, copy and paste this link: https://nrl.testcatalog.org/show/hsTrop Current Interpretive Data last revised 2020. Testing performed by: [address] [address] Trop T hs delta 0 ng/L GIOVANY Comment:Testing performed by : [address] [address] Trop T hs interp Insignificant GIOVANY MUELLER Comment:Testing performed by : [address] [address] Blood 03/02/2024 1:31 PM SLURRY MAN 03/02/2024 1:34 PM SLURRY MAN us Kam Das MD LAB BLOOD ORDERABLES F inal Result Performing Organization Address [facility] Co de Phone Number [address] [employer] [place], [place] [id number] * (ABNORMAL) D-dimer, quantitative (03/02/2024 1:31 PM SLURRY MAN) D-Dimer 530(H) <=499 ng/mL FEU Comment: Interpretive [...] last revised on 2019. Testing performed by: [address] [address] Blood 03/02/2024 1:31 PM SLURRY MAN 03/02/2024 1:34 PM SLURRY MAN us Cindy LOPEZ LAB BLOOD ORDERABLES Final Resu lt Performing Organization Address City/[facility]/ZIP Co de Phone Number [facility] [address] [place] [address] [place] [address] * XR Chest 1 Vw Portable (if patient condition/safety warrant portable) (03/02/2024 12:35 PM SLURRY MAN) Anatomical Region Laterality Modality Body, Chest N/A Computed Radiogr aphy 03/02/2024 12:5 2 PM SLURRY MAN Narrative 03/02/2024 12:53 PM SLURRY MAN EXAM DESCRIPTION: XR CHEST 1 VIEW REASON [...] Electronically signed by Wilton NOLASCO Report ID: [id number] Reading Location: [id number] Procedure Note Wilton Eugene MD - 03/02/2024 [...] signed by Wilton NOLASCO: GAURAV Report ID: [id number] Reading Location: [id number] us Kam Das MD IMG XR PROCEDURES Nova l Result * POCT hCG, urine (03/02/2024 12:30 PM SLURRY MAN) [facility] HCG, ur, POC Negative Negative Lot Number [id number] QC Backgroud Clear Acceptable QC Control Line Acceptable Urine 03/02/2024 12:3 0 PM SLURRY MAN Kam Das MD POINT OF CARE TEST ORD ERABLES Final Result * Troponin T high-sensitivity series (baseline, 2hr, 4hr, 6hr) (03/02/2024 11:57 AM SLURRY MAN) [facility] Trop T hs <6 <=14 ng/L Comment: Interpretive Data For further hscTnT resources including the diagnostic algorithm and an aid in interpretation, copy and paste this link: https://nrl.testcatalog.org/show/hsTrop Current Interpretive Data last revised 2020. Testing performed by: [facility], [address] [place] [address]., [address] Blood 03/02/2024 11:5 7 AM SLURRY MAN 03/02/2024 12:12 PM SLURRY MAN Kam Das MD LAB BLOOD ORDERABLES F inal Result [facility] [address] [facility] Department [place] [address] * eGFR (03/02/2024 11:57 AM SLURRY MAN) [facility] eGFR >90 >=60 mL/min/1. 73 m2 Comment: [...] was last reviewed 2020. Testing performed by: [address] [address] Blood 03/02/2024 11:5 7 AM SLURRY MAN 03/02/2024 12:12 PM SLURRY MAN us Kam Das MD LAB BLOOD ORDERABLES F inal Result GIOVANY [address] [facility] Department [place] [address] * Differential, auto (03/02/2024 11:57 AM SLURRY MAN) Neutrophil abs 3.0 1.5 - 6.5 K/cumm Comment:Testing performed by : [address] [address] Imm gran abs 0.0 0.0 - 0.1 K/cumm GIOVANY Comment:Testing performed by : [address] [address] Lymphocyte abs 1.6 0.8 - 3.3 K/cumm GIOVANY Comment:Testing performed by : [address] [address] Monocyte abs 0.4 0.2 - 0.8 K/cumm GIOVANY Comment:Testing performed by : [address] [address] Eosinophil abs 0.2 0.0 - 0.5 K/cumm GIOVANY Comment:Testing performed by : [address] [address] Basophil abs 0.0 0.0 - 0.1 K/cumm GIOVANY Comment:Testing performed by : [address] [place]., [address] Neutrophil pct 57.2 % [facility] Comment: Interpretive Data Percent cell count reference ranges are not reported, since discordance with absolute values may lead to misinterpretation of CBC data. Current Interpretive Data was last revised on 2017. Testing performed by: [address] [address] Imm gran pct 0.2 % [facility] Comment: Interpretive Data Percent cell count reference ranges are not reported, since discordance with absolute values may lead to misinterpretation of CBC data. Current Interpretive Data was last revised on 2017. Testing performed by: [address] [address] Lymphocyte pct 30.2 % [facility] Comment: Interpretive Data Percent cell count reference ranges are not reported, since discordance with absolute values may lead to misinterpretation of CBC data. Current Interpretive Data was last revised on 2017. Testing performed by: [address] [address] Monocyte pct 8.4 % [facility] Comment: Interpretive Data Percent cell count reference ranges are not reported, since discordance with absolute values may lead to misinterpretation of CBC data. Current Interpretive Data was last revised on 2017. Testing performed by: [address] [address] Eosinophil pct 3.4 % CERNER Comment: Interpretive Data Percent cell count reference ranges are not reported, since discordance with absolute values may lead to misinterpretation of CBC data. Current Interpretive Data was last revised on 2017. Testing performed by: [address] [address] Basophil pct 0.6 % [facility] Comment: Interpretive Data Percent cell count reference ranges are not reported, since discordance with absolute values may lead to misinterpretation of CBC data. Current Interpretive Data was last revised on 2017. Testing performed by: [address] [address] Blood 03/02/2024 11:5 7 AM SLURRY MAN 03/02/2024 12:12 PM SLURRY MAN us Kam Das MD LAB BLOOD ORDERABLES F inal Result [facility] [address] [facility] Department [place] [address] * (ABNORMAL) CBC with auto differential (03/02/2024 11:57 AM SLURRY MAN) [facility] Signature WBC 5.3 3.8 - 9.9 K/cumm Comment:Testing performed by : [address] [address] Hgb 14.2 11.9 - 15.5 g/dL GIOVANY Comment:Testing performed by : [address] [address] Hct 41.9 35.6 - 45.5 % GIOVANY Comment:Testing performed by : [address] [address] Plt 261 150 - 400 K/cumm GIOVANY Comment:Testing performed by : [address] [address] MPV 9.3 9.1 - 12.3 fL GIOVANY Comment:Testing performed by : [address] [address] RBC 4.13 3.90 - 5.20 M/cumm GIOVANY Comment:Testing performed by : [address] [address] MCV 101.5(H) 81.3 - 96.4 fL GIOVANY Comment:Testing performed by : [address] [address] MCH 34.4(H) 27.1 - 33.3 pg GIOVANY Comment:Testing performed by : [address] [address] MCHC 33.9 32.3 - 35.7 g/dL GIOVANY Comment:Testing performed by : [address] [address] RDW CV 12.4 11.1 - 14.9 % GIOVANY Comment:Testing performed by : [address] [address] RDW SD 46.6 35.7 - 48.1 fL GIOVANY Comment:Testing performed by : [address] [address] NRBC abs 0.00 0.00 - 0.01 K/cumm GIOVANY MUELLER Comment:Testing performed by : [address] [address] Blood Venous blood specimen / Unknown 03/02/2024 11:57 AM SLURRY MAN 03/02/2024 12:12 PM SLURRY MAN us Kam Das MD LAB BLOOD ORDERABLES F inal Result GIOVANY [facility] Department [place] [address] * Comprehensive metabolic panel (03/02/2024 11:57 AM SLURRY MAN) Sodium 141 135 - 145 mmol/L Comment:Testing performed by : [address] [address] Potassium, pl 3.9 3.3 - 4.9 mmol/L GIOVANY Comment:Testing performed by : [address] [address] Chloride 105 97 - 110 mmol/L GIOVANY Comment:Testing performed by : [address] [address] CO2 26 22 - 32 mmol/L GIOVANY Comment:Testing performed by : [address] [address] Anion gap 10 2 - 15 mmol/L GIOVANY Comment:Testing performed by : [address] [address] BUN 8 6 - 25 mg/dL GIOVANY Comment:Testing performed by : [address] [address] Creatinine 0.60 0.60 - 1.10 mg/dL GIOVANY Comment:Testing performed by : [address] [address] Glucose 79 70 - 199 mg/dL GIVOANY MUELLER Comment: Interpretive Data Fasting glucose >/= [...] was last revised 2022. Testing performed by: [address] [address] Calcium 9.6 8.5 - 10.3 mg/dL GIOVANY Comment:Testing performed by : [address] [address] Bilirubin, total 0.3 0.1 - 1.2 mg/dL GIOVANY Comment:Testing performed by : [address] [address] Protein, pl 7.8 6.5 - 8.5 g/dL GIOVANY Comment:Testing performed by : [address] [address] Albumin 4.8 3.5 - 5.0 g/dL GIOVANY Comment:Testing performed by : [address] [address] Alk phos 68 40 - 130 Units/L GIOVANY Comment:Testing performed by : [address] [address] ALT 32 7 - 45 Units/L GIOVANY Comment:Testing performed by : [address] [address] AST 35 10 - 45 Units/L GIOVANY Comment:Testing performed by : [address] [address] Blood 03/02/2024 11:5 7 AM SLURRY MAN 03/02/2024 12:12 PM SLURRY MAN us Kam Das MD LAB BLOOD ORDERABLES F inal Result GIOVANY [address] [facility] Department [place] [address] * ECG 12 lead (03/02/2024 11:55 AM SLURRY MAN) Ventricular Rate EKG/Min 74 BPM [facility] Atrial Rate 74 BPM [facility] DE-Interval (MSEC) 120 ms [facility] QRS-Interval (MSEC) 80 ms [facility] QT-Interval (MSEC) 386 ms [facility] QTc 428 ms [facility] P Nora 74 degrees [facility] R Nora 6 degrees [facility] T Nora 54 degrees [facility] Diagnosis Normal sinus rhythm Possible Left atrial enlargement Possible Anterior infarct (cited on or before 07-JUN-2016) Abnormal ECG When compared with ECG of 29-SEP-2023 10:43, QRS axis Shifted right Confirmed by CHATO COLVIN M.D. ([id number]) on 03/02/2024 11:41:28 PM [facility] 03/02/2024 11:5 5 AM SLURRY MAN 03/02/2024 11:41 PM SLURRY MAN us Kam Das MD ECG ORDERABLES Final Result Performing Organization Address City/[facility] Co de Phone Number [facility] from Last 3 Months Insurance [employer] [employer] [facility] [employer] Address: [facility] [address] [place] [address] Care Teams Leasing Assistant Relationship Specialty Start Date End Date Cresencio Jerez MD [address] [facility] [address] [place] [address] PCP - General Family Medicine 03/02/24
--- OUTSIDE RECORDS SUMMARY | 2024-05-15 00:50 | XMS_ITS | Clinical Summary ---
Author Organization [facility]ormir Address [address] [place] [address] Care Team Providers Care Project/Production Manager Imaging Name Role Phone Unavailable Primary Care Provider Unavailabl e Source Comments [facility],non-owned Affiliates and Associated Physician Practices is amultiple site organization consisting of ambulatory clinics and hospital sitesin [place], [place], [place] and [place]. This disclosure is being madepursuant to the Care Everywhere program and may not contain all information available regarding this patient. Last updated 17.[facility] Allergies No known active allergies Medications * [...] Comments Blood Pressure 115/53 04/21/2013 8:31 AM PULP OPERATOR Pulse 81 04/19/2013 12:52 PM PULP OPERATOR Temperature 36.5 C (97.7 F) 04/21/2013 8:31 AM PULP OPERATOR Respiratory Rate 16 04/21/2013 8:31 AM PULP OPERATOR Oxygen Saturation 99% 04/19/2013 2:30 PM PULP OPERATOR Inhaled Oxygen Concentration - - Weight 74.8 kg (165 lb) 04/19/2013 8:57 AM PULP OPERATOR Height 165.1 cm (5' 5 ) 04/19/2013 8:57 AM PULP OPERATOR Body Mass Index 27.46 04/19/2013 8:57 AM PULP OPERATOR Plan of Treatment Health Maintenance Due Date [...]
--- OUTSIDE RECORDS SUMMARY | 2024-05-15 00:50 | XMS_ITS | Patient Health Summary ---
Author Organization [facility] Address [address] [place] [address] Care Team Providers Care Cytology Manager Name Role Phone Unavailable Primary Care Provider Unavailabl e Note from [facility],non-owned Affiliates and Associated Physician Practices is amultiple site organization consisting of ambulatory clinics and hospital sitesin [place], [place], [place] and [place]. This disclosure is being madepursuant to the Care Everywhere program and may not contain all information available regarding this patient. Last updated 17.[facility] Allergies No known active allergies Medications * [...] Comments Blood Pressure 115/53 04/21/2013 8:31 AM TOE POUNDER Pulse 81 04/19/2013 12:52 PM TOE POUNDER Temperature 36.5 C (97.7 F) 04/21/2013 8:31 AM TOE POUNDER Respiratory Rate 16 04/21/2013 8:31 AM TOE POUNDER Oxygen Saturation 99% 04/19/2013 2:30 PM TOE POUNDER Inhaled Oxygen Concentration - - Weight 74.8 kg (165 lb) 04/19/2013 8:57 AM TOE POUNDER Height 165.1 cm (5' 5 ) 04/19/2013 8:57 AM TOE POUNDER Body Mass Index 27.46 04/19/2013 8:57 AM TOE POUNDER Procedures * LAB RESULTS ORDER(Performed 04/23/2013) * CBC W AUTO DIFFERENTIAL(Performed 04/20/2013) * BLOOD TYPE VERIFICATION(Performed 04/19/2013) * NEURAXIAL BLOCK(Performed 04/19/2013) * URINALYSIS REFLEX TO MICROSCOPIC NO CULTURE(Performed 04/19/2013) * URINE MICROSCOPIC ONLY(Performed 04/19/2013) * TYPE + SCREEN PANEL(Performed 04/19/2013) * CBC W AUTO DIFFERENTIAL(Performed 04/19/2013) Results * LAB RESULTS ORDER (04/23/2013 5:43 PM TOE POUNDER) Narrative 04/23/2013 5:43 PM TOE POUNDER Ordered by an unspecified provider. Transcriptions Document, Scanned - 04/23/2013 5:43 PM CST Scanned Document LAB - THERAPEUTIC DR RADER MONITORING ORDERABLES * (ABNORMAL) CBC W AUTO DIFFERENTIAL (04/20/2013 7:34 AM TOE POUNDER) Only the most recent of2 resultswithin the time period is included. WBC 12.4(H) 4.4 - 10.7 x10^9/L 04/20/2013 7:57 AM TOE POUNDER [facility] RBC 3.31(L) 3.80 - 5.20 x10^12/L 04/20/2013 7:57 AM TOE POUNDER [facility] Hemoglobin 11.1(L) 12.0 - 15.6 gm/dL 04/20/2013 7:57 AM TOE POUNDER [facility] Hematocrit 32.7(L) 35.9 - 45.5 % 04/20/2013 7:57 AM [facility] MCV 98.8(H) 80.7 - 98.3 fl 04/20/2013 7:57 AM [facility] MCH 33.5 26.7 - 34.0 pg 04/20/2013 7:57 AM [facility] MCHC 33.9 30.8 - 35.9 gm/dL 04/20/2013 7:57 AM [facility] Platelet Count 172 153 - 416 x10^9/L 04/20/2013 7:57 AM [facility] RDW-CV 13.5 12.1 - 14.9 % 04/20/2013 7:57 AM [facility] MPV 10.6 9.4 - 12.9 fl 04/20/2013 7:57 AM [facility] Neutrophils % 74.2(H) 44.0 - 73.0 % 04/20/2013 7:57 AM [facility] Lymphocytes % 16.6(L) 20.0 - 43.0 % 04/20/2013 7:57 AM [facility] Monocytes % 8.0 5.0 - 13.0 % 04/20/2013 7:57 AM [facility] Eosinophils % 1.0 0.0 - 6.0 % 04/20/2013 7:57 AM [facility] Basophils % 0.2 0.0 - 2.0 % 04/20/2013 7:57 AM [facility] Neutrophil Absolute 9.23(H) 2.01 - 7.14 x10^9/L 04/20/2013 7:57 AM [facility] Lymphocytes Absolute 2.06 1.07 - 3.94 x10^9/L 04/20/2013 7:57 AM [facility] Monocytes Absolute 0.99 0.26 - 1.07 x10^9/L 04/20/2013 7:57 AM [facility] Eosinophils Absolute 0.13 0 - 0.47 x10^9/L 04/20/2013 7:57 AM [facility] Basophils Absolute 0.03 0 - 0.08 x10^9/L 04/20/2013 7:57 AM [facility] Blood BLOOD SPECIMEN / Unknown Lab Venipuncture / Unknown 04/20/2013 7:34 AM TOE POUNDER 04/20/2013 7:45 AM TOE POUNDER Vince Garcia MD LAB - HEMATOLOGY OR DERABLES [facility] [address] [address] * BLOOD TYPE VERIFICATION (04/19/2013 3:05 PM TOE POUNDER) ABO O 04/19/2013 5:41 PM TOE POUNDER [facility] Rh Type Positive 04/19/2013 5:41 PM TOE POUNDER [facility] Blood Bank BLOOD SPECIMEN / Unknown 04/19/2013 3:05 PM TOE POUNDER 04/19/2013 3:11 PM TOE POUNDER Vince Garcia MD LAB - BLOOD BANK OR DERABLES Performing Organization Address [facility] Co de Phone Number [facility] * NEURAXIAL BLOCK (04/19/2013 1:15 PM TOE POUNDER) Narrative Cosmo Danielle APRN-PIANO TEACHER - 04/19/2013 1:15 PM TOE POUNDER MARIAH Brush 04/19/2013 1:15 PM NEURAXIAL BLOCK [...] (ABNORMAL) URINALYSIS ROUTINE AUTO (04/19/2013 9:15 AM TOE POUNDER) Color UA Yellow Straw, Yellow, Dark Yellow 04/19/2013 9:57 AM TOE POUNDER [facility] Clarity UA Cloudy 04/19/2013 9:57 AM TOE POUNDER [facility] Specific [place] UA 1.021 1.005 - 1.030 04/19/2013 9:57 AM [facility] pH UA 5.5 5.0 - 8.0 pH 04/19/2013 9:57 AM [facility] Protein UA Negative Negative 04/19/2013 9:57 AM [facility] Blood UA Negative Negative 04/19/2013 9:57 AM [facility] Leukocyte UA 2+(A) Negative 04/19/2013 9:57 AM [facility] Nitrite UA Negative Negative 04/19/2013 9:57 AM [facility] Glucose UA Negative Negative 04/19/2013 9:57 AM [facility] Ketone UA Negative Negative 04/19/2013 9:57 AM [facility] Bilirubin UA Negative Negative 04/19/2013 9:57 AM [facility] Urobilinogen UA 0.2 0.1 - 1.0 EU/dL 04/19/2013 9:57 AM [facility] WBC UA Auto >100(A) 0-2, 2-5 #/hpf 04/19/2013 9:57 AM [facility] RBC UA Auto Reflex to manual(A) 0-2, 2-5 #/hpf 04/19/2013 9:57 AM [facility] Epithelial Cell UA Auto 10-20(A) 0-2, 2-5 #/hpf 04/19/2013 9:57 AM [facility] Bacteria UA Auto 4+(A) None seen 04/19/19 14 9:57 AM [facility] Yeast UA Auto Reflex to manual(A) None seen 04/19/2013 9:57 AM [facility] Urine URINE SPECIMEN OBTAINED BY CLEAN CATCH PROCEDURE / Unknown Collection / Unknown 04/19/2013 9:15 AM [facility] 04/19/2013 9:38 AM [facility] Vince Garcia MD LAB - URINALYSIS OR DERABLES [facility] [address] [address] * (ABNORMAL) URINALYSIS MICROSCOPIC ONLY (04/19/2013 9:15 AM [facility]) RBC UA 5-10(A) 0-2, 2-5 # /hpf 04/19/2013 10:28 AM [facility] WBC UA >100(A) 0-2, 2-5 # /hpf 04/19/2013 10:28 AM [facility] Bacteria UA 4+(A) None Seen 04/19/2013 10:28 AM [facility] Epithelial Cell UA 10-20(A) 0-2, 2-5 04/19/2013 10:28 AM [facility] Urine URINE SPECIMEN OBTAINED BY CLEAN CATCH PROCEDURE / Unknown 04/19/2013 9:15 AM TOE POUNDER 04/19/2013 9:38 AM TOE POUNDER Vince Garcia MD LAB - URINALYSIS OR DERABLES [facility] [address] * TYPE + SCREEN PANEL (04/19/2013 9:14 AM TOE POUNDER) ABO O 04/19/2013 10:38 AM [facility] Rh Type Positive 04/19/2013 10:38 AM [facility] Antibody Screen Negative 04/19/2013 10:38 AM [facility] Comment:History check perfor med. Retype required. Blood Bank BLOOD SPECIMEN / Unknown Venipuncture / Unknown 04/19/2013 9:14 AM TOE POUNDER 04/19/2013 9:38 AM TOE POUNDER Vince Garcia MD LAB - BLOOD BANK OR DERABLES [facility]
[2024-05-15] MEDS: LACTATED RINGERS 1,000 ML 30 ML IV CONT ×2 (06:25→14:12)
[2024-05-15 06:45] LABS: Urine Cotinine NEGATIVE
--- NOTE | 2024-05-15 06:54 | P.PNAN_ITS ---
Anes - Initial Pre Proc Eval Procedure: Operation Date: 05/15/24 07:30 Proposed Procedures p Bilateral Breast Implant Exchange - Fortino Fall MD s Bilateral Breast Mastopexy - Fortino Fall MD s Abdominoplasty with Liposuction - Fortino Fall MD Date/Time: 05/15/24 06:54 Surgeon: Fortino Fall MD Pre Op Diagnosis: Hx of Breast Aug, Skin Laxity, Breast Ptosis Patient Data Age: 38 Gender: F Height: 1.63 m Weight: 60 kg Allergies Allergy/AdvReac Type Severity Reaction Status Date / Time No Known Allergies Allergy Verified 05/04/24 15:17 Home Medications ?Medication ?Instructions ?Recorded ?Confirmed ?Type bupropion HCl 300 mg 24 hr tablet, 300 mg PO DAILY 05/04/24 05/04/24 History extended release omeprazole 20 mg capsule,delayed 20 mg PO DAILY 05/04/24 05/04/24 History release valacyclovir 1 gram tablet 500 mg PO BID PRN cold sores 05/04/24 05/04/24 History (Valtrex) Laboratory Tests 05/15/24 06:10 Cotinine Negative Patient hx anesthesia problems: post op nausea/vomiting Family hx anesthesia problems: none Results Review: All pre-operative results and documents have been reviewed as part of the pre- operative evaluation. FOR[facility]LY [facility] Social History Social History Smoking status: Never smoker Second hand tobacco smoke exposure: No Alcohol intake: current Substance use: current Substance use type: marijuana Other substance usage details: RARE-2 MO AGO FOR INSOMNIA-A GUMMIE Living arrangements: with family Spiritual care concerns: No Anes - Eval Final PreProcedure Day of Procedure 05/15/24 06:54 Patient weight: normal Heart: regular rate and rhythm Lungs: clear to auscultation Airway: Mallampati scale class II Neurological: alert and oriented Last oral intake: >/= 8 hours ASA classification: II Emergent: no Anesthetic plan: proceed Anesthesia type and monitoring: general ETT and standard monitoring Results Review: All pre-operative results and documents have been reviewed as part of the pre- operative evaluation. Informed Consent: The patient's anesthetic plan and its attendant risks and benefits were discussed with the patient/family/POA. Questions were solicited and answers provided to the satisfaction of the patient/family/POA.
[2024-05-15] MEDS: SCOPOLAMINE 1 MG PATCH 1 PATCH TRANSDERM (07:02)
[2024-05-15 07:03] LABS: BEDSIDEPREGUCG Negative (Negative)
[2024-05-15] MEDS: TRANEXAMIC ACID 1,000MG/ISO100 1,000 MG/100 ML BAG 200 MG IVPB (07:15)
--- NOTE | 2024-05-15 07:22 | P.OP_ITS ---
Procedure Note - Detailed Date of Procedure 05/15/24 Pre-op Diagnosis Hx of Breast Aug, Skin Laxity, Breast Ptosis Post-op Diagnosis Same Procedure Performed 1. Bilateral breast implant exchange 2. Bilateral breast mastopexy 3. Progressive tension abdominoplasty with suction lipectomy Surgeon Fortino Fall MD Anesthesia General Findings Inverted T superior pedicle mastopexy Previous implants: Natrelle [id number] New implants: Bilateral Natrelle Saline 400cc filled to 420 Right - REF# [id number] SN [id number] Left - REF# [id number] SN [id number] Tissue removed: 431.8 grams Lipoaspirate: 2,150 cc Description of Procedure They are here today for the above procedures. Previously and again today the risks, benefits, alternatives were discussed in extensive detail. 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 We discussed aftercare and what to monitor for. I was very upfront about the risks of wound breakdown leading to loss of skin, open wounds, and need for additional procedures with permanent abdominal deformity. We discussed DVT/PE risks and management. Made sure answered all of their questions to their satisfaction today and consent was obtained. They were marked in the preoperative holding area with their verification. The patient was taken to the operating room. Anesthesia was provided by anesthesiology. A English catheter was started. Posterior Placed prone on the operating room table with care taken to protect from injury. Prepped and draped in a standard sterile fashion. A surgical time-out was taken. Stab incisions were made and tumescent solution was infiltrated. Once adequate time was allowed for hemostasis a 5mm basket and 4mm merlin cannula were utilized to complete suction lipectomy based on S.A.F.E. technique in multiple planes and passes. Suction lipectomy continued to result based on pre-operative planning, intra-operative observation, and rolling pinch test which were in full agreement. Breast Patient was then placed supine with care taken to protect from injury. Tumescent was utilized laterally to provide field block Tegaderm nipple Khan were placed. A 15 blade used to make an incision along the IMF. Dissection continued until the implants were identified, drained with an 18 guage needle and removed. I copiously irrigated with 3 liters of saline solution and verified a string hemostasis. Lateral and inferior popcorn cappuloraphy was completed to help position new implants superior / medial and decrease pocket size which was much larger than the current implants. Next the use a triple antibiotic and Betadine containing solution to irrigate the pocket. I washed my gloves with the triple antibiotic and Betadine solutio n. We washed the implant immediately upon opening it with this solution and only opened it when we needed it. On the back table I opened the implant and removed all air. Was placed and filled to the volumes as above utizing a universal fill kit. Having verified positioning of the implant this was closed using 2-0 PDS. I tailor tacked the breast into position. Placed her in a sitting position. Verified the nipple-areolar location based on preoperative planning as well as intraoperative observations and measurements in full agreement. Suction lipectomy was completed laterally with a 4mm merlin cannula. This was based on preoperative planning, intraoperative observation, and rolling pinch which was in full agreement. She was placed supine. I de-epithelialized the pedicle. I then removed the inferior central portion of the breast need making sure the implant was well protected. I elevated medial and lateral tissue flaps as well for planned closure. I closed along the IMF with 2-0 Stratafix. Along the vertical with 2-0 PDS. I closed around the areola with 3-0 strata fix. 3-0 Monocryl along the vertical. 3-0 Stratafix along the IMF. I finally closed everything with running subcuticular 4-0 Monocryl and tissue glue except the vertical which after 4-0 Monocryl we placed Brijjit devices. Abdomen I placed the patient in a flexed position to verify the upper and lower markings would reach. I then placed supine. A thorough abdominal examination was completed. Stab incisions were made and tumescent solution infiltrated. Stab incisions were made and tumescent solution was infiltrated. Once adequate time was allowed for hemostasis a 5mm basket and 4mm merlin cannula were utilized to complete suction lipectomy based on S.A.F.E. technique in multiple planes and passes. Suction lipectomy continued to result based on pre-operative planning, intra-operative observation, and rolling pinch test which were in full agreement. A 10 blade was used to make the upper incision. I continued dissection down to the level of fascia. Elevated just what was necessary for repair of the diastasis. I then again flexed the bed to verify the upper skin flap would reach the lower markings without tension. Once verified I placed her supine once again and a 10 blade used to make the lower incision. I elevated up to level the umbilicus and left the umbilicus intact on a well-vascularized stalk. The intervening tissue was removed. A 2 mm blunt cannula with 0.5% bupivacaine was injected deep to the fascia bilaterally. I plicated the diastasis recti using 0 PDO Stratafix barbed suture. This was in 2 separate layers using 2 separate sutures as well. After the patient was flexed (below) plicated the fascia with 0 PDO Stratafix in two separate layers both supraumbilical and infraumbilical. The patient was flexed and starting from superior to inferior began plication using 2-0 Vicryl to obliterate all space in a standard progressive tension fashion. At the umbilicus I marked out the location of the skin and inset this with 3-0 Monocryl and 4-0 Vicryl. I continued the remainder of the plication using 2-0 Vicryl until I reached my lower planned scar line. I trimmed any excess skin of the upper flap making sure this was a tension-free closure. She did have a small inferior vertical scar. 15 Bebeto drain was placed. I then approximated using a 3 point suture with 2-0 Vicryl followed by 2-0 PDO Stratafix, 3-0 Stratafix ,running subcuticular 4-0 Monocryl, and tissue glue. The vertical scar we placed Brijjit closure device. Fluffs and an abdominal binder were placed. The patient was transferred to the bed in a flexed position. [place] and taken to the PACU without difficulty. All instrument and sponge counts were correct at the end of the case. Estimated Blood Loss 100 Drains Yes (15 Bebeto) Packing No Pathology None sent Complications No immediate complications Condition Stable Disposition PACU
--- NOTE | 2024-05-15 07:22 | WPDHPUPDATE1 ---
History and Physical Update Update Date/Time: 05/15/24 07:22 History and Physical has been reviewed, including an updated exam of the patient. There are NO changes in the patient's condition. Risks, benefits, and alternatives have been discussed and questions answered. Patient agrees to proceed with procedure.
[2024-05-15] MEDS: ceFAZolin 2 GM/D5W 50 ML 2 GM/50 ML BAG IVPB (07:29)
[2024-05-15] MEDS: LACTATED RINGERS IRRIG 1,000 ML, LIDOCAINE 1% LOCAL INJ 50 ML, EPINEPHrine HCL INJ 1 MG... INFILTRATE (07:29)
[2024-05-15] MEDS: NACL 0.9% IRRIG POUR BOTTLE 900 ML, GENTAMICIN SULFATE INJ 160 MG, ceFAZolin 2 GM, POVI... IRRIGATION (07:29)
[2024-05-15] MEDS: BUPIVACAINE/EPINEPHRINE 0.5% 30 ML VIAL 60 ML INFILTRATE (08:04)
[2024-05-15] MEDS: ceFAZolin SODIUM 1 GM VIAL IV PUSH (11:29)
[2024-05-15] MEDS: ceFAZolin 1 GM/NS 50 ML 1 GM/50 ML BAG IVPB (11:29)
[2024-05-15] MEDS: fentaNYL CITRATE INJ (*CRX) 100 MCG/2 ML VIAL 25 MCG IV PUSH ×4 (14:49→15:20)
[2024-05-15] MEDS: ONDANSETRON INJ 4 MG/2 ML VIAL IV PUSH (15:58)
[2024-05-15] MEDS: oxyCODONE HCL (*CRX) 5 MG TAB IR PO (16:48)
== END 2024-05-15 18:04 | disposition home or self-care (01) ==
PROVIDERS: PCP Family Medicine; Visit Provider Surgery Plastic and Reconstructive Surgery
PROC: (CPT 19370; principal; 2024-05-15 07:30)
PROC: (CPT 19316; 2024-05-15 07:30)
PROC: (CPT 19370; 2024-05-15 07:30)
DX: Z41.1 Encounter for cosmetic surgery (principal); L57.4 Cutis laxa senilis; F12.90 Cannabis use, unspecified, uncomplicated
CPT/HCPCS: 19370; 19325; 19316; 15830; 15847; 15877; 80307; A9270; J0171; J0690; J1100; J1171; J1580; J2003; J2250; J2371; J2405; J2704; J3010; J7120